=== PATIENT | male | born 1985 | race American Indian/Alaskan Native ===

== ENCOUNTER 2017-06-29 05:27 | Inpatient (IN) | payer OTHER ==
--- NOTE | 2017-06-29 06:25 | C.PDOC ---
History Of Present Illness <Ayana Hatfield - Last Filed: 06/29/17 06:21> <Khushbu Bazzi - Last Filed: 06/29/17 09:08> 32 yo male come in for evaluation of depression associated with suicidal ideation, pt has no plan. Pt denies previous hx of suicidal ideation. Pt denies drug use, Pt denies any physical complaints at present time. AT the time of evaluation, appears comfortable, not in any apparent distress. (Ayana Hatfield ) History Per: Patient <Ayana Hatfield - Last Filed: 06/29/17 06:21> <Khushbu Bazzi - Last Filed: 06/29/17 09:08> Time Seen by Provider: 06/29/17 06:21 Chief Complaint (Nursing): Psychiatric Evaluation Past Medical History Reviewed: Historical Data, Nursing Documentation, Vital Signs - Medical History PMH: Anxiety Family History: States: No Known Family Hx - Social History Hx Alcohol Use: Yes Hx Substance Use: No - Immunization History Hx Tetanus Toxoid Vaccination: No Hx Influenza Vaccination: No Hx Pneumococcal Vaccination: No <Ayana Hatfield - Last Filed: 06/29/17 06:21> Vital Signs: Last Vital Signs Temp 98.9 F 06/29/17 06:04 Pulse 97 H 06/29/17 06:04 Resp 16 06/29/17 06:04 BP 143/94 H 06/29/17 06:04 Pulse Ox 98 06/29/17 06:25 Review Of Systems Except As Marked, All Systems Reviewed And Found Negative. Constitutional: Negative for: Fever, Chills Eyes: Negative for: Vision Change ENT: Negative for: Throat Pain Cardiovascular: Negative for: Chest Pain, Palpitations, Orthopnea, Light Headedness Respiratory: Negative for: Cough, Shortness of Breath, Wheezing Gastrointestinal: Negative for: Nausea, Vomiting, Abdominal Pain, Diarrhea Genitourinary: Negative for: Dysuria Musculoskeletal: Negative for: Neck Pain, Back Pain Skin: Negative for: Rash Neurological: Negative for: Weakness, Numbness, Altered Mental Status, Headache , Dizziness Psych: Positive for: Depression, Suicidal ideation <Ayana Hatfield - Last Filed: 06/29/17 06:21> Physical Exam - Physical Exam Appears: Well, Non-toxic, No Acute Distress Skin: Normal Color, Warm, Dry Head: Atraumatic, Normacephalic Eye(s): bilateral: PERRL Ear(s): Bilateral: Normal Nose: No Flaring, No Discharge Oral Mucosa: Moist, No Drooling Throat: No Erythema, No Drooling Neck: Trachea Midline, Supple Cardiovascular: Rhythm Regular Respiratory: No Decreased Breath Sounds, No Accessory Muscle Use, No Stridor, No Wheezing Gastrointestinal/Abdominal: Soft, No Tenderness, No Distention, No Guarding Back: No CVA Tenderness Extremity: Normal ROM, No Pedal Edema, No Swelling Neurological/Psych: Oriented x3, Normal Speech <Ayana Hatfield - Last Filed: 06/29/17 06:21> ED Course And Treatment O2 Sat by Pulse Oximetry: 98 Pulse Ox Interpretation: Normal Progress Note: Pt was sign out to [facility]. medical clearence with crisis evaluation-pending. <Ayana Hatfield - Last Filed: 06/29/17 06:21> - Laboratory Results Result Diagrams: 06/29/17 06:42 06/29/17 06:42 <Khushbu Bazzi - Last Filed: 06/29/17 09:08> Medical Decision Making <Ayana Hatfield - Last Filed: 06/29/17 06:21> <Khushbu Bazzi - Last Filed: 06/29/17 09:08> Medical Decision Making: Patient was endorsed to me at 7:00. Upon evaluation, patient denies any physical complaints. Pt was evaluated by utility worker [employer] who discussed case with Dr. Smith. Dr. Smith agrees upon admission. (Khushbu Bazzi) Disposition - Disposition Disposition Time: 06:25 <Ayana Hatfield - Last Filed: 06/29/17 06:21> <Khushbu Bazzi - Last Filed: 06/29/17 09:08> - Disposition Condition: STABLE - Clinical Impression Clinical Impression: Suicidal ideation Physician Patient Turnover Patient Signed Over To: Khushbu Bazzi <Ayana Hatfield - Last Filed: 06/29/17 06:21>
[2017-06-29 06:45] LABS: BASO % 0.4 % (0.0-2.0); EOS # 0.1 K/uL (0.0-0.7); EOS % 1.3 % (0.0-4.0); HEMATOCRIT 48.3 % (35.0-51.0); LYMPH # 2.3 K/uL (1.0-4.3); LYMPH % 22.3 % (20.0-40.0); MEAN CELL VOLUME 89.5 fL (80.0-94.0); MEAN CORPUSCULAR HEMOGLOBIN 30.9 pg (27.0-31.0); MEAN CORPUSCULAR HGB CONC 34.5 g/dL (33.0-37.0); MEAN PLATELET VOLUME 7.5 fL (7.2-11.7); MONO # 0.8 K/uL (0.0-0.8); MONO % 7.4 % (0.0-10.0); NRBC % 0.1 % (0.0-2.0); RED CELL DISTRIBUTION WIDTH 12.7 % (11.5-14.5); WHITE BLOOD COUNT 10.5 K/uL (4.8-10.8)
[2017-06-29 06:52] LABS: RBC URINE 5 /hpf (0-3); URINE BILIRUBIN NEGATIVE (NEGATIVE); URINE BLOOD 1+ (NEGATIVE); URINE COLOR Yellow (YELLOW); URINE GLUCOSE (UA) NORMAL (Normal); URINE KETONE TRACE mg/dL (NEGATIVE); URINE LEUKOCYTE ESTERASE NEG Leu/uL (Negative); URINE PROTEIN NEGATIVE (NEGATIVE); URINE UROBILINOGEN NORMAL mg/dL (0.2-1.0); WBC URINE < 1 /hpf (0-5)
[2017-06-29 06:55] LABS: CHLORIDE 101 mmol/L (98-107); POTASSIUM 4.6 mmol/L (3.6-5.2); SODIUM 139 mmol/L (132-148)
[2017-06-29 06:57] LABS: ALKALINE PHOSPHATASE 84 U/L (38-126); AST/SGOT 27 U/L (17-59); BILIRUBIN,TOTAL 0.8 mg/dL (0.2-1.3); BLOOD UREA NITROGEN 13 mg/dL (9-20); CARBON DIOXIDE 28 mmol/L (22-30); GFR AFRICAN-AMERICAN > 60; TOTAL PROTEIN 8.4 g/dL (6.3-8.3)
[2017-06-29 06:58] LABS: ALCOHOL SERUM < 10 mg/dl (0-10); ALT/SGPT 37 U/L (21-72); CALCIUM 9.8 mg/dl (8.6-10.4); GLUCOSE,RANDOM 81 mg/dL (75-110)
[2017-06-29] MEDS: buPROPion SR 150 MG TABLET PO SCH (10:36)
--- NOTE | 2017-06-29 10:50 | PCM.BM ---
<HimatwnaBailee - Last Filed: 06/29/17 10:50> Treatment Plan Problems - Problems identified on initial assessmt depression Date Initiated: 06/29/17 Time Initiated: 10:47 Assessment reference: NA Status: Active Treatment assets and liabiliti Patient Assests: adapts well, cooperative, motivated, ADL independent, physically healthy, negotiates basic needs Patient Liabilities: live alone, relationship conflicts (father , sister and newphew killed by his brother) - Milieu Protocol Maintain good personal hygiene: daily Encourage regular showers, daily Remind patient to perform daily oral care, other Assist patient to perform ADL's (self) Conduct patient checks and document Observation sheet: Q15 minutes Maintain personal safety: every shift Educate patient to report safety concerns to staff, every shift Monitor environment for contraband/sharps Medication safety: Monitor for expected outcome, potential side effects: every shift, Assess barriers to learning: every shift, Assess readiness for medication education: every shift <Rita Pena - Last Filed: 07/01/17 13:33> Family Contact Family involvement: Famliy/SO not involved - Goals for Treatment Patient goals for treatment: "I want to see a therapist." Discharge/Continuing Care - Education Needs Education Needs: Patient Medication, Patient Coping Skills - Discharge Discharge Criteria: Tolerates medication w/o severe side effects, Reduction of target symptoms Discharge to:: Home - Treatment Team Participation Discussed with Family/SO: No Was Patient/Family/SO present at Treatment Team Meeting: Yes <Brendon Alcantara - Last Filed: 07/01/17 17:02> - Diagnosis (1) Major depressive disorder, single episode Status: Acute Interventions: Assess/adjust medications daily and/or as needed SEE patient on him individual basis 7x/week to assess status of hallucinations. Discuss risks, benefits, side effects and alternatives of medications. 07/01/17 17:02 (2) ADHD (attention deficit hyperactivity disorder), combined type Status: Acute Interventions: Assess/adjust medications daily and/or as needed SEE patient on him individual basis 7x/week to assess status of hallucinations. Discuss risks, benefits, side effects and alternatives of medications. 07/01/17 17:02
[2017-06-29] MEDS: Patient's Own Control Med PO SCH (16:12)
--- NOTE | 2017-06-29 20:46 | PCM.PSYCH ---
Initial Psychiatric Evaluation - Initial Psychiatric Evaluation Type of Admission: Voluntary Legal Status: Capacity Chief Complaint (in patient's own words): "I want to feel better" Patient's Reaction to Hospitalization: feeling safe History of Present Illness and Precipitating Events: time spend 36 minutes Patient is a 32-year-old single, black male with the diagnosis of ADHD was depressive symptoms with suicidal ideation. He reported that he has had depressed mood for the past few week patient reports hes had persistent suicidal thoughts with no plan or intent. He stated that he contracted hospital for safety. He reported that his stresses are that his father from a heart problem in April 2017, his sister and nephew were murdered in [place] by patients brother in May 2017 over their father's Estate. He's also having legal issues with [employer] about them debiting an unauthorized amount of $ 4000 from his bank account. Since the loss of his loved ones hes finding himself questioning God and his caren which he feels guilty about that. His appetite and sleep are poor because of his stress. The last time he fully rested was two days ago. He has relational issues with his friends and his family. He reproted that he difficulty in focusing, paying attention, and not able to work without Concertas. He prescribed Concerta 54mg for ADHD and Ativan 0.5 mg 2x/daily for anxiety. [facility] checked and it verifies that he is on Concerta for a longtime. While Ativan is a new and someday supply order. Pt also reproted that he is not taking ativan. Patient reports feelings of hopelessness and is overwhelmed, stressed and in emotional distress. He reports most days he has no motivation to go to work or do things once pleasurable. 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 Patient denies suicidal thoughts prior to a week ago. Last week he called the suicide hotline at the recommendation of friend but decided not to come to the hospital until today. Patient denies psychosis and homicidal thoughts. Patient has no history of inpatient psychiatric admission; however, he is requesting hospitalization to treat his depression and suicidal thoughts. Current Medications: Active Medications Generic Name Dose Route Start Last Admin Trade Name Freq PRN Reason Stop Dose Admin Benztropine Mesylate 2 mg 06/29/17 08:39 Cogentin PO Q6 PRN Extra Pyramidal Symptoms Bupropion HCl 150 mg 06/29/17 10:00 06/29/17 10:36 Wellbutrin Sr 150 Mg PO 150 mg QAM JEANCARLOS Administration Haloperidol 5 mg 06/29/17 08:39 Haldol PO Q8 PRN Moderate Agitation Home Med 1 tab 06/29/17 16:00 06/29/17 16:12 Patient's Own Control Medication PO 1 tab 1600 JEANCARLOS Administration Hydroxyzine HCl 25 mg 06/29/17 08:39 Atarax PO Q6 PRN Anxiety Ibuprofen 400 mg 06/29/17 08:39 Motrin Tab PO Q6 PRN Pain, moderate (4-7) Lorazepam 2 mg 06/29/17 08:39 Ativan PO Q8H PRN Severe Agitation Trazodone HCl 50 mg 06/29/17 08:39 Desyrel PO HS PRN Insomnia Past Psychiatric History - Past Psychiatric History Prior Professional Help: He denied inpt psych admission. Prior Psychiatric Treatment: ADHD and was in treatment with Concerta History of ETOH/Drug Use: Denied History of Family Illness: denied Pertinent Medical Hx (Current Medical&Sleep Prob, Allergies): Allergies Allergy/AdvReac Type Severity Reaction Status Date / Time No Known Allergies Allergy Verified 06/29/17 06:06 Lorazepam [Ativan] 0.5 mg PO BID 06/29/17 Methylphenidate HCl [Concerta] 54 mg PO DAILY 06/29/17 Review of Systems - Review of Systems Systems not reviewed;Unavailable: Acuity of Condition All systems: reviewed and no additional remarkable complaints except (psych sx. please see HPI) Mental Status Examination - Personal Presentation Personal Presentation: Looks younger than stated age, Dressed appropriate to season - Affect Affect: Constricted - Motor Activity Motor Activity: Calm, Psychomotor Retardation - Reliability in Providing Information Reliability in Providing Information: Other (poor) - Speech Speech: Incoherent - Mood Mood: Depressed - Formal Thought Process Formal Thought Process: No Impairment, Loosening of associations - Hallucinations/Delusions Hallucinations: Other (denied) - Obsessions/Compulsions Obsessions: No Compulsions: No - Cognitive Functions Orientation: Person, Place, Situation, Time Sensorium: Alert Attention/Concentration: Attentive Abstract Thinking: [place] Estimate of Intelligence: Average Judgement: Intact, as evidence by: Good judgement, Intact, as evidence by: Insight regarding need for hospitalization Memory: Recent intact, as evidence by: Ability to recall events of the day - Strength & Assets Inventory Strength & Assets Inventory: Intelligence, Education, Employment status, Employment history, Skills - Limitations Limitations: Living alone DSM 5 DX - DSM 5 DSM 5 Diagnosis: MDD single, severe, without psychosis ADHD - Recommended/Plan of Treatment Treatment Recommendations and Plan of Treatment: Start Wellbutrin for depression Start Concerta 54 mg po daily in the AM Medication benefits. risk, s/e and alternative med discussed and offered to him. He verbalized understanding and agree to start Wellbutrin. Recommend Individual/ group therapy Encouraged to attend groups. therapy in [facility]. Projected ELOS: 5-7 days Prognosis: fair with meds Discharge Plan and Discharge Criteria: compliance with meds When pt is stable on depressed mood - Smoking Cessation Smoking Cessation Initiated: Yes
[2017-06-30] MEDS: buPROPion SR 150 MG TABLET PO SCH (10:17)
[2017-06-30] MEDS: Patient's Own Control Med PO SCH (15:58)
--- NOTE | 2017-06-30 18:59 | PCM.PYCHPN ---
Psychiatric Progress Note - Psychiatric Progress Note Patient seen today, length of contact: 16 minutes Patient Chief Complaint: "I'm able to focus on myself" Problems Identified/Issues Discussed: Pt was seen and evaluated. Chart reviewed and nurse input received. Pt stated that he is feeling calm and able to focus on himself and his issues. He stated that Wellbutrin and Concerta are helping him in focusing and organizing him. He reported that he is feeling relax as he is not thinking of his relational issues. He denied SI, HI, intent or plan. Diagnostic Results: reviewed DSM 5 Symptoms Update: MDD, Severe, single, without psychotic features ADHD Medication Change: No Medical Record Reviewed: Yes Mental Status Examination - Cognitive Function Orientation: Person, Place, Situation, Time Memory: Intact Attention: WNL Concentration: WNL Association: WNL Fund of Knowledge: [facility] Decription of patient's judgement and insights: limited/fair - Mood Mood: Depressed - Affect Affect: Constricted, Blunted - Speech Speech: Appropriate - Formal Thought Process Formal Thought Process: No Impairment, Loosening of associations Psychotic Thoughts and Behaviors: denied - Suicidal Ideation Suicidal Ideation: No - Homicidal Ideation Homicidal Ideation: No Goal/Treatment Plan - Goal/Treatment Plan Need for Continued Stay: Severe depression anxiety, Discharge may exacerbated symptoms Progress Toward Problem(s) and Goals/Treatment Plan: Continue Wellbutrin for depression Concerta 54 mg po daily in the AM Medication benefits. risk, s/e and alternative med discussed and offered to him. He verbalized understanding and agree to start Wellbutrin. Recommend Individual/ group therapy Encouraged to attend groups. therapy in [facility]. Estimated Date of D/C: 07/04/17
[2017-07-01] MEDS: buPROPion SR 150 MG TABLET PO SCH (09:32)
[2017-07-01] MEDS: Patient's Own Control Med PO SCH (16:15)
--- NOTE | 2017-07-01 17:06 | PCM.PYCHPN ---
Psychiatric Progress Note - Psychiatric Progress Note Patient seen today, length of contact: 15 minutes Patient Chief Complaint: I'm feeling better. Problems Identified/Issues Discussed: Patient seen. Chart reviewed. Case discussed with the staff. Issues related to illness and treatment were discussed with the patient. Reported compliant with treatment with no adverse affects. Tolerating treatment very well. Patient reported he smokes cigarette and requested for nicotine patch. Patient refused to get the amount smoking daily, but replied he smoke a lot of cigarettes daily. Also reported feeling better with the treatment. At the time of evaluation, patient was awake alert oriented 3, no auditory or visual hallucinations, no delusions, no suicidal ideations or homicidal ideations. Medical Problems: None reported Diagnostic Results: Reviewed DSM 5 Symptoms Update: Improving with treatment Medication Change: Yes (Nicotine patch started) Medical Record Reviewed: Yes Mental Status Examination - Cognitive Function Orientation: Person, Place, Situation, Time Memory: Intact Attention: WNL Concentration: WNL Association: WNL Fund of Knowledge: WN Decription of patient's judgement and insights: Fair - Mood Mood: Depressed - Affect Affect: Blunted - Speech Speech: Appropriate - Formal Thought Process Formal Thought Process: No Impairment - Suicidal Ideation Suicidal Ideation: No - Homicidal Ideation Homicidal Ideation: No Goal/Treatment Plan - Goal/Treatment Plan Need for Continued Stay: Remain at risks for inpatient hospitalization, Discharge may exacerbated symptoms, Severe functional impairment Progress Toward Problem(s) and Goals/Treatment Plan: Patient education Supportive therapy Continue treatment as before Wants to go to [facility] for follow-up care after discharge from the hospital. Estimated Date of D/C: 07/04/17 - Smoking Cessation Smoking Cessation Initiated: Yes
[2017-07-02] MEDS: buPROPion SR 150 MG TABLET PO SCH (10:08)
--- NOTE | 2017-07-02 14:37 | PCM.PYCHPN ---
Psychiatric Progress Note - Psychiatric Progress Note Patient seen today, length of contact: 15 minutes Patient Chief Complaint: I'm feeling better, but now I have racing thoughts Problems Identified/Issues Discussed: Patient seen. Chart reviewed. Case discussed with the staff. Issues related to illness and treatment were discussed with the patient. Reported compliant with treatment with no adverse affects. Tolerating treatment very well. Also reported feeling better with the treatment. today patient reported that he feels better, but also has a lot of racing thoughts. we will start Depakote 500 mg twice a day. At the time of evaluation, patient was awake alert oriented 3, no auditory or visual hallucinations, no delusions, no suicidal ideations or homicidal ideations. Medical Problems: None reported Diagnostic Results: Reviewed DSM 5 Symptoms Update: Improving with treatment Medication Change: Yes (started Depakote 500 mg twice a day) Medical Record Reviewed: Yes Mental Status Examination - Cognitive Function Orientation: Person, Place, Situation, Time Memory: Intact Attention: WNL Concentration: WNL Association: [facility] Fund of Knowledge: [facility] Decription of patient's judgement and insights: Fair - Mood Mood: Neutral - Affect Affect: Blunted - Speech Speech: Appropriate - Formal Thought Process Formal Thought Process: No Impairment Psychotic Thoughts and Behaviors: none - Suicidal Ideation Suicidal Ideation: No - Homicidal Ideation Homicidal Ideation: No Goal/Treatment Plan - Goal/Treatment Plan Need for Continued Stay: Remain at risks for inpatient hospitalization, Discharge may exacerbated symptoms, Severe functional impairment Progress Toward Problem(s) and Goals/Treatment Plan: Patient education Supportive therapy we will start Depakote 500 mg twice a day Continue rest of the treatment as before Wants to go to [facility] for follow-up care after discharge from the hospital. Estimated Date of D/C: 07/04/17 - Smoking Cessation Smoking Cessation Initiated: No
[2017-07-02] MEDS: Patient's Own Control Med PO SCH (16:06)
[2017-07-02] MEDS: Divalproex 500 mg DR Tab PO SCH (17:53)
[2017-07-03] MEDS: buPROPion SR 150 MG TABLET PO SCH (09:46)
[2017-07-03] MEDS: Divalproex 500 mg DR Tab PO SCH ×2 (09:46→17:20)
--- NOTE | 2017-07-03 13:08 | PCM.PYCHPN ---
Psychiatric Progress Note - Psychiatric Progress Note Patient seen today, length of contact: 15 minutes Patient Chief Complaint: I'm feeling better. Problems Identified/Issues Discussed: Patient seen. Chart reviewed. Case discussed with the staff. Issues related to illness and treatment were discussed with the patient. Reported compliant with treatment with no adverse affects. Tolerating treatment very well. Patient reported feeling better. Denied any racing thoughts after addition of Depakote. At the time of evaluation, patient was awake alert oriented 3, no auditory or visual hallucinations, no delusions, no suicidal ideations or homicidal ideations. Medical Problems: None reported Diagnostic Results: Reviewed DSM 5 Symptoms Update: Improving with treatment Medication Change: No Medical Record Reviewed: Yes Mental Status Examination - Cognitive Function Orientation: Person, Place, Situation, Time Memory: Intact Attention: WNL Concentration: WNL Association: WN Fund of Knowledge: [facility] Decription of patient's judgement and insights: Fair - Mood Mood: Neutral - Affect Affect: Blunted - Speech Speech: Appropriate - Formal Thought Process Formal Thought Process: No Impairment Psychotic Thoughts and Behaviors: None - Suicidal Ideation Suicidal Ideation: No - Homicidal Ideation Homicidal Ideation: No Goal/Treatment Plan - Goal/Treatment Plan Need for Continued Stay: Remain at risks for inpatient hospitalization, Discharge may exacerbated symptoms, Severe functional impairment Progress Toward Problem(s) and Goals/Treatment Plan: Patient education Supportive therapy Continue treatment as before Wants to go to [facility] for follow-up care after discharge from the hospital. Estimated Date of D/C: 07/08/17 - Smoking Cessation Smoking Cessation Initiated: No
[2017-07-03] MEDS: Patient's Own Control Med PO SCH (16:25)
[2017-07-04] MEDS: buPROPion SR 150 MG TABLET PO SCH (09:43)
[2017-07-04] MEDS: Divalproex 500 mg DR Tab PO SCH ×3 (09:43→17:32)
[2017-07-04] MEDS: Patient's Own Control Med PO SCH (11:19)
--- NOTE | 2017-07-04 12:48 | PCM.PYCHPN ---
Psychiatric Progress Note - Psychiatric Progress Note Patient seen today, length of contact: 15 minutes Patient Chief Complaint: I'm feeling better. I don't want to take Depakote. Problems Identified/Issues Discussed: Patient seen. Chart reviewed. Case discussed with the staff. Issues related to illness and treatment were discussed with the patient. Reported compliant with treatment with no adverse affects. Tolerating treatment very well. Patient reported feeling better. Denied any racing thoughts after addition of Depakote. Today patient refuses to take Depakote. Education provided about Depakote and other medications. After education patient agreed to take all of his medications. At the time of evaluation, patient was awake alert oriented 3, no auditory or visual hallucinations, no delusions, no suicidal ideations or homicidal ideations. Medical Problems: None reported Diagnostic Results: Reviewed DSM 5 Symptoms Update: Improving with treatment Medication Change: No Medical Record Reviewed: Yes Mental Status Examination - Cognitive Function Orientation: Person, Place, Situation, Time Memory: Intact Attention: WNL Concentration: WNL Association: [facility] Fund of Knowledge: [facility] Decription of patient's judgement and insights: Fair - Mood Mood: Neutral - Affect Affect: Blunted - Speech Speech: Appropriate - Formal Thought Process Formal Thought Process: No Impairment Psychotic Thoughts and Behaviors: None - Suicidal Ideation Suicidal Ideation: No - Homicidal Ideation Homicidal Ideation: No Goal/Treatment Plan - Goal/Treatment Plan Need for Continued Stay: Remain at risks for inpatient hospitalization, Discharge may exacerbated symptoms, Severe functional impairment Progress Toward Problem(s) and Goals/Treatment Plan: Patient education Supportive therapy Continue treatment as before Wants to go to [facility] for follow-up care after discharge from the hospital. Estimated Date of D/C: 07/08/17 - Smoking Cessation Smoking Cessation Initiated: No
[2017-07-05] MEDS: Divalproex 500 mg DR Tab PO SCH ×3 (09:46→18:12)
[2017-07-05] MEDS: Patient's Own Control Med PO SCH (10:11)
[2017-07-05] MEDS: buPROPion SR 150 MG TABLET PO SCH (11:00)
[2017-07-06 07:59] VITALS: O2SAT 98
[2017-07-06] MEDS: buPROPion SR 150 MG TABLET PO SCH (09:05)
[2017-07-06] MEDS: Divalproex 500 mg DR Tab PO SCH ×3 (09:05→17:10)
[2017-07-06] MEDS: Patient's Own Control Med PO SCH (09:06)
--- NOTE | 2017-07-06 14:38 | PCM.PYCHPN ---
Psychiatric Progress Note - Psychiatric Progress Note Patient seen today, length of contact: 15 minutes Patient Chief Complaint: I'm feeling better but that he had some sleeping problems. Problems Identified/Issues Discussed: Patient seen. Chart reviewed. Case discussed with the staff. Issues related to illness and treatment were discussed with the patient. Reported compliant with treatment with no adverse affects. Tolerating treatment very well. Patient reported feeling better still reported some sleeping problem. We'll increase the dose of trazodone 100 mg. At the time of evaluation, patient was awake alert oriented 3, no auditory or visual hallucinations, no delusions, no suicidal ideations or homicidal ideations. Medical Problems: None reported Diagnostic Results: Reviewed DSM 5 Symptoms Update: Improving with treatment Medication Change: Yes (Dose of trazodone increased to 100 mg) Medical Record Reviewed: Yes Mental Status Examination - Cognitive Function Orientation: Person, Place, Situation, Time Memory: Intact Attention: WNL Concentration: WNL Association: WN Fund of Knowledge: [facility] Decription of patient's judgement and insights: Fair - Mood Mood: Neutral - Affect Affect: Blunted - Speech Speech: Appropriate - Formal Thought Process Formal Thought Process: No Impairment Psychotic Thoughts and Behaviors: None - Suicidal Ideation Suicidal Ideation: No - Homicidal Ideation Homicidal Ideation: No Goal/Treatment Plan - Goal/Treatment Plan Need for Continued Stay: Remain at risks for inpatient hospitalization, Discharge may exacerbated symptoms, Severe functional impairment Progress Toward Problem(s) and Goals/Treatment Plan: Patient education Supportive therapy Will increase the dose of trazodone to 100 mg at bedtime Continue rest of the treatment as before Wants to go to [facility] for follow-up care after discharge from the hospital. Estimated Date of D/C: 07/08/17 - Smoking Cessation Smoking Cessation Initiated: No
[2017-07-06 16:12] VITALS: RESP 18
[2017-07-07] MEDS: Patient's Own Control Med PO SCH (10:26)
[2017-07-07] MEDS: Divalproex 500 mg DR Tab PO SCH ×2 (10:26→17:34)
[2017-07-07] MEDS: buPROPion SR 150 MG TABLET PO SCH (10:29)
--- NOTE | 2017-07-07 14:57 | PCM.PYCHPN ---
Psychiatric Progress Note - Psychiatric Progress Note Patient seen today, length of contact: 15 minutes Patient Chief Complaint: I'm feeling better. Problems Identified/Issues Discussed: Patient seen. Chart reviewed. Case discussed with the staff. Issues related to illness and treatment were discussed with the patient. Reported compliant with treatment with no adverse affects. Tolerating treatment very well. Patient reported feeling better. Better mood, sleep and appetite. At the time of evaluation, patient was awake alert oriented 3, no auditory or visual hallucinations, no delusions, no suicidal ideations or homicidal ideations. Medical Problems: None reported Diagnostic Results: Reviewed DSM 5 Symptoms Update: Improving with treatment Medication Change: No Medical Record Reviewed: Yes Mental Status Examination - Cognitive Function Orientation: Person, Place, Situation, Time Memory: Intact Attention: WNL Concentration: WNL Association: WNL Fund of Knowledge: [facility] Decription of patient's judgement and insights: Fair - Mood Mood: Neutral - Affect Affect: Blunted - Speech Speech: Appropriate - Formal Thought Process Formal Thought Process: No Impairment Psychotic Thoughts and Behaviors: None - Suicidal Ideation Suicidal Ideation: No - Homicidal Ideation Homicidal Ideation: No Goal/Treatment Plan - Goal/Treatment Plan Need for Continued Stay: Remain at risks for inpatient hospitalization, Discharge may exacerbated symptoms, Severe functional impairment Progress Toward Problem(s) and Goals/Treatment Plan: Patient education Supportive therapy Continue treatment as before. Wants to go to [facility] for follow-up care after discharge from the hospital. Estimated Date of D/C: 07/08/17 - Smoking Cessation Smoking Cessation Initiated: No
[2017-07-07] MEDS ORDERED: Sodium Chloride Nasal 0.65% Soln (30ml) NAS PRN (21:20)
[2017-07-08 07:28] VITALS: BP 129/75; PULSE 76; TEMP 96.7
--- NOTE | 2017-07-08 09:42 | PCM.PYCHDC ---
Mental Status Examination - Mental Status Examination Orientation: Person, Place, Situation, Time Memory: Intact Mood: Anxious Affect: Broad (odd smile) Speech: Appropriate Attention: Poor Concentration: Poor Association: WNL Fund of Knowledge: WNL Formal Thought Process: No Impairment Suicidal Ideation: No Current Homicidal Ideation?: No Discharge Summary - Discharge Note Reason for Hospitalization: Depression and SI Consultations:: List each consultation separately and include: 1. Reason for request. 2. Findings. 3. Follow-up Summary of Hospital Course include:: 1. Description of specific treatment plan utilized for patients during their course of treatmen. 2. Summarize the time- course for resolution of acute symptoms and/or regressed behaviors. 3. Describe issues identified and worked on during hospitalization. 4. Describe medication utilized. 5. Describe medical problems identified and treated. 6. Reassessment of suicide risk Summary of Hospital Course: The pt was admitted and started on treatment with psychotherapy, support, psychoeducation and medications. MS and CBT used. The pt attended groups and activities, as well as milieu therapy. All the risks and benefits of medications are discussed and the patient understood and agreed. The pt improved with the treatments provided. After care discussed with the patient. He was not interested in any concrete follow up (but got the appointment for [facility]) and he refused meds He said with therapy and good self-care (gym, etc.) he should be OK. 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 relapse, SI, even . He understood. - Final Diagnosis (DSM 5) Condition upon Discharge: STABLE DSM 5: MDD single, severe, without psychosis ADHD Disposition: HOME/ ROUTINE Follow-up Treatment Plan: Follow after care plan as discussed. Use relapse prevention skills Return to ER or call 911 if suicidal, homicidal or symptoms relapse. Stay away from stress, alcohol and drugs. See primary doctor regularly and get labs. - Smoking Cessation Smoking Cessation Medication prescribed: No - Antipsychotic Medications Pt discharged on 2 or more routine antipsychotic medications: No
[2017-07-08] MEDS: Divalproex 500 mg DR Tab PO SCH (12:01)
[2017-07-08] MEDS: buPROPion SR 150 MG TABLET PO SCH (12:07)
[2017-07-08] MEDS: Patient's Own Control Med PO SCH (12:15)
== END 2017-07-08 12:55 | disposition home or self-care (01) | DRG 430 ==
LOC: C.ER 05:27 → C.5E 08:32
PROVIDERS: ADMIT Psychiatry & Neurology Psychiatry; ATTEND Psychiatry & Neurology Psychiatry
PROC: GZ56ZZZ Individual Psychotherapy, Supportive (ICD-10-PCS; principal; 2017-06-29)
DX: F32.2 Major depressive disorder, single episode, severe without psychotic features (principal); F41.9 Anxiety disorder, unspecified; F17.210 Nicotine dependence, cigarettes, uncomplicated; F90.2 Attention-deficit hyperactivity disorder, combined type

== ENCOUNTER 2018-01-09 20:44 | Emergency (ER) | payer OTHER ==
[2018-01-09 21:16] VITALS: BP 130/88; PULSE 112; RESP 20; TEMP 99.6; O2SAT 99
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
== END 2018-01-09 22:26 | disposition home or self-care (01) ==
LOC: C.ER 20:44
DX: F41.9 Anxiety disorder, unspecified (principal); G47.9 Sleep disorder, unspecified

== ENCOUNTER 2018-01-16 02:02 | Emergency (ER) | payer OTHER ==
[2018-01-16 02:28] VITALS: RESP 20; O2SAT 99
--- NOTE | 2018-01-16 02:54 | C.PDOC ---
History Of Present Illness pt presents stating that he can't sleep. Was seen here for similar complaint. very anxious. Wants something to sleep Time Seen by Provider: 01/16/18 02:41 Chief Complaint (Nursing): Medical Clearance History Per: Patient History/Exam Limitations: no limitations Onset/Duration Of Symptoms: Days Current Symptoms Are (Timing): Still Present Severity: Mild Pain Scale Rating Of: 2 Reports Recently: Seen In ED, Treated By A Physician Recent travel outside of the [place]: No Additional History Per: Patient Past Medical History Reviewed: Historical Data, Nursing Documentation, Vital Signs Vital Signs: Last Vital Signs Temp 98.1 F 01/16/18 02:24 Pulse 84 01/16/18 02:24 Resp 20 01/16/18 02:24 BP 108/55 L 01/16/18 02:24 Pulse Ox 99 01/16/18 02:54 - Medical History PMH: Anxiety Denies: Diabetes, Hepatitis, HIV, HTN, Chronic Kidney Disease, Seizures, Sexually Transmitted Disease - [facility] Procedures INDIVIDUAL PSYCHOTHERAPY, SUPPORTIVE (06/29/17) Family History: States: No Known Family Hx - Social History Hx Alcohol Use: No Hx Substance Use: No - Immunization History Hx Tetanus Toxoid Vaccination: No Hx Influenza Vaccination: No Hx Pneumococcal Vaccination: No Review Of Systems Constitutional: Negative for: Fever Cardiovascular: Negative for: Chest Pain Respiratory: Negative for: Shortness of Breath Gastrointestinal: Negative for: Abdominal Pain Musculoskeletal: Negative for: Back Pain Skin: Negative for: Rash Neurological: Negative for: Weakness Psych: Positive for: Anxiety Physical Exam - Physical Exam Appears: Non-toxic, No Acute Distress Skin: Warm, Dry Head: Normacephalic Oral Mucosa: Moist Neck: Supple Chest: Symmetrical Cardiovascular: Rhythm Regular Respiratory: No Rales, No Rhonchi, No Wheezing Gastrointestinal/Abdominal: Soft, No Tenderness Back: Normal Inspection Extremity: Normal ROM Extremity: Bilateral: Atraumatic Neurological/Psych: Oriented x3, No Normal Speech, No Normal Cognition Gait: Steady ED Course And Treatment O2 Sat by Pulse Oximetry: 99 Pulse Ox Interpretation: Normal Reevaluation Time: 03:45 Reassessment Condition: Improved Disposition Counseled Patient/Family Regarding: Studies Performed, Diagnosis, Need For Followup - Disposition Referrals: [facility] [Outside] Disposition: HOME/ ROUTINE Disposition Time: 02:53 Condition: FAIR Instructions: Anxiety, Adult (DC) Forms: [facility] (Nepalese) - Clinical Impression Clinical Impression: Anxiety
[2018-01-16 04:10] VITALS: BP 110/60; PULSE 82; TEMP 98.2
== END 2018-01-16 04:09 | disposition home or self-care (01) ==
LOC: C.ER 02:02
DX: F41.9 Anxiety disorder, unspecified (principal)

== ENCOUNTER 2018-04-21 08:07 | Inpatient (IN) | payer MEDICAID, OTHER ==
[2018-04-21 08:07] VITALS: BMI 20.7
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
[2018-04-21] MEDS ORDERED: Bacitracin 500 Units/gm Oint Foilpak UD TOP ONE ×2 (08:43→22:11)
[2018-04-21 09:09] LABS: BASO # 0.1 K/uL (0.0-0.2); BASO % 0.9 % (0.0-2.0); EOS # 0.1 K/uL (0.0-0.7); EOS % 1.1 % (0.0-4.0); LYMPH # 1.4 K/uL (1.0-4.3); LYMPH % 16.6 % (20.0-40.0); MEAN CORPUSCULAR HEMOGLOBIN 32.3 pg (27.0-31.0); MEAN CORPUSCULAR HGB CONC 35.5 g/dL (33.0-37.0); MEAN PLATELET VOLUME 7.9 fL (7.2-11.7); MONO # 0.6 K/uL (0.0-0.8); MONO % 7.4 % (0.0-10.0); NEUT # 6.5 K/uL (1.8-7.0); RBC 4.56 Mil/uL (4.40-5.90); RED CELL DISTRIBUTION WIDTH 12.7 % (11.5-14.5); WHITE BLOOD COUNT 8.7 K/uL (4.8-10.8)
[2018-04-21] MEDS ORDERED: Bacitracin 500 Units/gm Oint Foilpak UD ONE (09:09)
[2018-04-21 09:16] LABS: HEMOGLOBIN 14.7 g/dL (12.0-18.0)
[2018-04-21 09:26] LABS: ALB/GLOB RATIO 1.2 (1.0-2.1); ALBUMIN 3.7 g/dL (3.5-5.0); ALT/SGPT 33 U/L (21-72); AST/SGOT 35 U/L (17-59); BLOOD UREA NITROGEN 13 mg/dL (9-20); GFR AFRICAN-AMERICAN > 60; GFR NON-AFRICAN AMERICAN > 60
[2018-04-21 09:44] LABS: URINE BILIRUBIN NEGATIVE (NEGATIVE); URINE BLOOD NEGATIVE (NEGATIVE); URINE CLARITY Clear (Clear); URINE COLOR Yellow (YELLOW); URINE GLUCOSE (UA) NORMAL (Normal); URINE LEUKOCYTE ESTERASE NEG Leu/uL (Negative); URINE PROTEIN NEGATIVE (NEGATIVE)
[2018-04-21 10:04] LABS: BARBITURATES, UR NEGATIVE (NEGATIVE); BENZODIAZEPINES, UR NEGATIVE (NEGATIVE); OPIATES, UR NEGATIVE (NEGATIVE); PHENCYCLIDINE, UR NEGATIVE (NEGATIVE)
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
--- NOTE | 2018-04-21 21:43 | PCM.BM ---
<Dez Coreas - Last Filed: 04/21/18 21:42> Treatment Plan Problems - Problems identified on initial assessmt Depression Date Initiated: 04/21/18 Time Initiated: 15:00 Assessment reference: NA Status: Active Treatment assets and liabiliti Patient Assests: cooperative, motivated, ADL independent, physically healthy, negotiates basic needs, cognitively intact Patient Liabilities: financial problems, poor support system - Milieu Protocol Maintain good personal hygiene: daily Encourage regular showers, daily Remind patient to perform daily oral care, every shift Assist patient to perform ADL's Conduct patient checks and document Observation sheet: Q15 minutes Maintain personal safety: every shift Educate patient to report safety concerns to staff, every shift Monitor environment for contraband/sharps Medication safety: Monitor for expected outcome, potential side effects: every shift, Assess barriers to learning: every shift, Assess readiness for medication education: every shift <Ramiro Pace - Last Filed: 04/23/18 11:30> - Diagnosis (1) Bipolar disorder Status: Acute Interventions: 04/23/18 11:30 * Assess/adjust medications daily and /or as needed * See patient on an individual basis 7x/week to assess level of manic behaviors and stability * Discuss risks, benefits, side effects and alternatives of medications * <Deena Hernández - Last Filed: 04/23/18 15:25> Family Contact Family involvement: Patient does not wish Family/SO involvement Family contact: Patient declines to allow family contact at present - Goals for Treatment Patient goals for treatment: "I want to go to an outpatient program." Discharge/Continuing Care - Education Needs Education Needs: Patient Medication, Patient Diagnosis/Disease Process, Patient Coping Skills, Patient Anger Management skills, Patient Placement options, Patient Community resources - Discharge Discharge Criteria: Free of Suicidal thoughts, Free of Homicidal thoughts, Free of agitation, Normal sleep pattern, Ability to care for self, No longer exhibiting s/s of withdrawal, Reduction of target symptoms Discharge to:: Home - Treatment Team Participation Discussed with Family/SO: No Was Patient/Family/SO present at Treatment Team Meeting: Yes
[2018-04-21] MEDS ORDERED: Bacitracin Ointment 30 GM TUBE TOP PRN (23:52)
[2018-04-22] MEDS ORDERED: CONCERTA 54 MG PO SCH (14:00)
--- NOTE | 2018-04-22 14:02 | PCM.PYCHPN ---
Psychiatric Progress Note - Psychiatric Progress Note Patient seen today, length of contact: 16 min Patient Chief Complaint: I was feeling depressed.' Problems Identified/Issues Discussed: Continue medications Support and psychoeducation daily Attend groups and activities daily After care planning by JOSE RAUL Pt said that he would only take anti-depressant meds if he received his ADHD medication. Otherwise pt was cooperative, talkative, with a broad affect. He said that he was still feeling depressed and had anxiety. Said that he had thoughts about hurting himself as well as hurting his ex-partner. Denied and auditory or visual hallucinations. He remained isolated and withdrawn, and confined to her room. He denies any AVH or any paranoia. Patient is compliant with medications and denies any side effects. Symptoms are improving but pt needs more time to stabilize. Support and psychoeducation given. Medication Change: Yes Medical Record Reviewed: Yes Mental Status Examination - Cognitive Function Orientation: Person, Place, Situation, Time Memory: Intact Attention: WNL Concentration: WNL Association: Loose Fund of Knowledge: WNL - Mood Mood: Depressed, Anxious - Affect Affect: Broad, Constricted, Depressed - Speech Speech: Appropriate - Formal Thought Process Formal Thought Process: Loosening of associations - Suicidal Ideation Suicidal Ideation: No Plan: no plan - Homicidal Ideation Homicidal Ideation: No Plan: no plan Goal/Treatment Plan - Goal/Treatment Plan Need for Continued Stay: Discharge may exacerbated symptoms, Severe functional impairment Progress Toward Problem(s) and Goals/Treatment Plan: Bipolar disorder mixed severe without psychotic features ADHD Alcohol use disorder severe CBT Psychoeducation Supportive therapy, group therapy, individual therapy Trileptal 150 mg by mouth twice a day Seroquel 50 mg by mouth daily at bedtime DC Concerta Trazodone 50 mg by mouth daily at bedtime Neurontin 300 mg by mouth twice a day
--- NOTE | 2018-04-23 11:31 | PCM.PYCHPN ---
Psychiatric Progress Note - Psychiatric Progress Note Patient Chief Complaint: I want my medications Problems Identified/Issues Discussed: Continue medications Support and psychoeducation daily Attend groups and activities daily After care planning by JOSE RAUL Pt became agitated and angry when told that he would not be receiving his ADHD medication. After which he stated that he will refuse to take any medication offered to him during his stay here. He also appeared to be confused when being told that he wasn't going to received his meds, asking multiple times what was being told to him, afterwards stating that he couldn't focus because he hadn't been taking his ADHD meds. Denied any auditory or visual hallucinations; denied any suicidal ideations, still has thoughts about hurting his ex-boyfriend. Mental Status Examination - Cognitive Function Orientation: Person, Place, Situation, Time Memory: Intact Attention: WNL Concentration: WNL - Mood Mood: Depressed, Anxious, Homicidal Ideation - Affect Affect: Broad, Constricted, Depressed - Speech Speech: Appropriate - Formal Thought Process Formal Thought Process: No Impairment - Suicidal Ideation Suicidal Ideation: No - Homicidal Ideation Homicidal Ideation: Yes Goal/Treatment Plan - Goal/Treatment Plan Progress Toward Problem(s) and Goals/Treatment Plan: Bipolar disorder mixed severe without psychotic features ADHD Alcohol use disorder severe CBT Psychoeducation Supportive therapy, group therapy, individual therapy Trileptal 150 mg by mouth twice a day Seroquel 50 mg by mouth daily at bedtime DC Concerta Trazodone 50 mg by mouth daily at bedtime Neurontin 300 mg by mouth twice a day
[2018-04-23 16:18] VITALS: O2SAT 99
--- NOTE | 2018-04-24 12:41 | PCM.PYCHPN ---
Psychiatric Progress Note - Psychiatric Progress Note Patient seen today, length of contact: 16 min Patient Chief Complaint: "I' ll take my meds" Problems Identified/Issues Discussed: Continue medications Support and psychoeducation daily Attend groups and activities daily After care planning by JOSE RAUL Pt said that he wasn't interested in taking any medications since he isn't receiving his ADHD medication. Pt was agitated and irritable. He denies any AVH or any paranoia. He reports some improvement in his mood and denies any AVH. Patient is compliant with medications and denies any side effects. Symptoms are improving but need more time to stabilize. Support and psychoeducation given. === Medication Change: Yes Medical Record Reviewed: Yes Mental Status Examination - Cognitive Function Orientation: Person, Place, Situation, Time Memory: Intact Attention: WNL Concentration: WNL Association: Loose Fund of Knowledge: WNL - Mood Mood: Depressed, Anxious - Affect Affect: Constricted, Depressed - Speech Speech: Appropriate - Formal Thought Process Formal Thought Process: Loosening of associations - Suicidal Ideation Suicidal Ideation: No - Homicidal Ideation Homicidal Ideation: No Goal/Treatment Plan - Goal/Treatment Plan Need for Continued Stay: Discharge may exacerbated symptoms, Severe functional impairment Progress Toward Problem(s) and Goals/Treatment Plan: Bipolar disorder mixed severe without psychotic features ADHD Alcohol use disorder severe CBT Psychoeducation Supportive therapy, group therapy, individual therapy Trileptal 300 mg by mouth twice a day Seroquel 100 mg by mouth daily at bedtime Trazodone 50 mg by mouth daily at bedtime Neurontin 300 mg by mouth twice a day Klonopin 1 mg PO BID - Smoking Cessation Smoking Cessation Initiated: No
[2018-04-24 16:37] VITALS: BP 120/74
[2018-04-25 06:31] VITALS: PULSE 70; RESP 18; TEMP 97.8
--- NOTE | 2018-04-25 09:50 | PCM.PYCHDC ---
Mental Status Examination - Mental Status Examination Orientation: Person, Place, Situation, Time Memory: Intact Mood: Anxious Affect: Constricted Speech: Appropriate Attention: WNL Concentration: Poor Association: WNL Fund of Knowledge: WNL Formal Thought Process: No Impairment Suicidal Ideation: No Current Homicidal Ideation?: No Discharge Summary - Discharge Note Reason for Hospitalization: Feeling depressed Consultations:: List each consultation separately and include: 1. Reason for request. 2. Findings. 3. Follow-up Summary of Hospital Course include:: 1. Description of specific treatment plan utilized for patients during their course of treatmen. 2. Summarize the time- course for resolution of acute symptoms and/or regressed behaviors. 3. Describe issues identified and worked on during hospitalization. 4. Describe medication utilized. 5. Describe medical problems identified and treated. 6. Reassessment of suicide risk Summary of Hospital Course: The pt was admitted and started on treatment with psychotherapy, support, psychoeducation and medications. Support and CBT used The pt attended some groups and activities, as well as milieu therapy. All the risks and benefits of medications are discussed and the patient understood and agreed. The pt improved with the treatments provided. However, he was fixated on getting Concerta and even though the risks of using it when he was complaining of agitation discussed, he kept insisting. He was no longer homicidal or suicidal. He was future oriented and pleasant at he end. Before that, however, he was threatening to staff and med-seeking After care discussed with the patient. He will go to [facility] clinic. - Final Diagnosis (DSM 5) Condition upon Discharge: STABLE DSM 5: Bipolar disorder mixed severe without psychotic features ADHD Alcohol use disorder severe Personality disorder - unspecified Disposition: HOME/ ROUTINE Follow-up Treatment Plan: Continue below medications after discharge. Plus, your own medications, but do NOT resume 54 mg Concerta if you have not taken it for more than 2-3 days Follow after care plan as discussed. Use relapse prevention skills Return to ER or call 911 if suicidal, homicidal or symptoms relapse. Stay away from stress, alcohol and drugs. See primary doctor regularly and get labs. Prescriptions/Medication Reconciliation: OXcarbazepine [Trileptal] 300 mg PO BID #30 tab QUEtiapine [Seroquel] 100 mg PO HS #14 tab
== END 2018-04-25 12:31 | disposition home or self-care (01) | DRG 885 ==
LOC: C.ER 08:07 → C.5E 12:00
PROVIDERS: ADMIT Psychiatry & Neurology Psychiatry; ATTEND Psychiatry & Neurology Psychiatry
PROC: GZ56ZZZ Individual Psychotherapy, Supportive (ICD-10-PCS; principal; 2018-04-21)
DX: F31.63 Bipolar disorder, current episode mixed, severe, without psychotic features (principal); F10.10 Alcohol abuse, uncomplicated; F41.9 Anxiety disorder, unspecified; F60.9 Personality disorder, unspecified; F90.2 Attention-deficit hyperactivity disorder, combined type; R45.850 Homicidal ideations; Z91.14 Patient's other noncompliance with medication regimen; Z87.891 Personal history of nicotine dependence

== ENCOUNTER 2018-04-30 00:44 | Emergency (ER) | payer MEDICAID, OTHER ==
[2018-04-30 00:44] VITALS: BMI 20.7
[2018-04-30 01:42] VITALS: RESP 18; O2SAT 99
--- NOTE | 2018-04-30 01:54 | C.PDOC ---
History Of Present Illness 33yo male, comes to ER for evaluation of bloody stools x 5 days. Patient states every time he makes a bowel movement, he noted blood in the stool, bowl and on the tissue. He states pain is only present if the stool is hard; he reports his last bowel movement was today and the stool was loose but there was blood present. He denies any abdominal pain, fever, chills, nausea, vomiting, light headedness. He offers no other complaints. Time Seen by Provider: 04/30/18 01:22 Chief Complaint (Nursing): GI Problem History Per: Patient History/Exam Limitations: no limitations Onset/Duration Of Symptoms: Days (5) Current Symptoms Are (Timing): Still Present Past Medical History Reviewed: Historical Data, Nursing Documentation, Vital Signs Vital Signs: Last Vital Signs Temp 98.2 F 04/30/18 02:00 Pulse 80 04/30/18 02:00 Resp 18 04/30/18 02:00 BP 101/69 04/30/18 02:00 Pulse Ox 99 04/30/18 02:39 - Medical History PMH: Anxiety, Depression Surgical History: No Surg Hx - [facility] Procedures GROUP PSYCHOTHERAPY (04/01/18) INDIVIDUAL PSYCHOTHERAPY, COGNITIVE-BEHAVIORAL (04/01/18) INDIVIDUAL PSYCHOTHERAPY, SUPPORTIVE (04/21/18) Family History: States: No Known Family Hx - Social History Hx Alcohol Use: Yes Hx Substance Use: No - Immunization History Hx Tetanus Toxoid Vaccination: Yes Hx Influenza Vaccination: No Hx Pneumococcal Vaccination: No Review Of Systems Except As Marked, All Systems Reviewed And Found Negative. Constitutional: Negative for: Fever, Chills Cardiovascular: Negative for: Light Headedness Gastrointestinal: Positive for: Hematochezia. Negative for: Vomiting, Abdominal Pain, Constipation, Rectal Pain Physical Exam - Physical Exam Appears: Non-toxic, No Acute Distress Skin: Normal Color, Warm, Dry Head: Atraumatic, Normacephalic Eye(s): bilateral: Normal Inspection, EOMI Neck: Normal ROM, Supple Chest: Symmetrical Cardiovascular: Rhythm Regular Respiratory: Normal Breath Sounds Gastrointestinal/Abdominal: Normal Exam, Soft, No Tenderness, No Guarding, No Rebound Rectal: No Blood Streaked Stool, Hemorrhoids (external), No Mass, No Tenderness Back: Normal Inspection Male Genital: No Testicular Swelling, No Scrotal Swelling, Circumcised Extremity: Normal ROM Neurological/Psych: Oriented x3, Normal Speech Gait: Steady ED Course And Treatment O2 Sat by Pulse Oximetry: 99 (RA) Pulse Ox Interpretation: Normal Medical Decision Making Medical Decision Making: Impression: Hemorrhoids Plan: * Occult stool Progress: Stool negative for blood. Patient instructed to take medications as prescribed. Patient informed on sitz bath. Stable for discharge home. Disposition Counseled Patient/Family Regarding: Diagnosis, Need For Followup, Rx Given - Disposition Referrals: [facility] [Outside] [email or web address] [Outside] Disposition: HOME/ ROUTINE Disposition Time: 01:52 Condition: STABLE Additional Instructions: Do Sitz baths Take medications as prescribed Follow up in the clinic Prescriptions: Docusate [Colace] 100 mg PO TID PRN #30 cap PRN Reason: Constipation Hard Fat/Phenylephrine [place] [Anusol Suppository] 1 sup RC HS #24 sup Instructions: Hemorrhoids (DC), How to Do a Sitz Bath Forms: [facility] - POA Present On Arrival: None - Clinical Impression Clinical Impression: Hemorrhoids - PA / SOFTWARE DEVELOPMENT TEST ENGINEER / Resident Statement MD/ has reviewed & agrees with the documentation as recorded. - Scribe Statement The provider has reviewed the documentation as recorded by the Jessica Shelley Provider Attestation: All medical record entries made by the Jessica were at my direction and personally dictated by me. I have reviewed the chart and agree that the record accurately reflects my personal performance of the history, physical exam, medical decision making, and the department course for this patient. I have also personally directed, reviewed, and agree with the discharge instructions and disposition.
[2018-04-30 02:04] VITALS: BP 101/69; PULSE 80; TEMP 98.2
== END 2018-04-30 02:04 | disposition home or self-care (01) ==
LOC: C.ER 00:44
DX: K64.4 Residual hemorrhoidal skin tags (principal)
CPT/HCPCS: 99284; G0328

== ENCOUNTER 2018-06-05 13:07 | Emergency (ER) | payer MEDICAID ==
[2018-06-05 13:07] VITALS: BMI 20.7
[2018-06-05 13:19] VITALS: BP 129/78; PULSE 118; TEMP 98.4; O2SAT 96
--- NOTE | 2018-06-05 13:29 | C.PDOC ---
History Of Present Illness 33 year old male presents to the ED for evaluation of anxiety and depression for the last few days. Patient states bereaved stress is related to the recent of a family member. Prior history of [facility] ED visit for similar symptoms. Denies suicide and homicidal ideations, fever, nausea, vomiting, and any other associated symptoms. Time Seen by Provider: 06/05/18 13:17 Chief Complaint (Nursing): Psychiatric Evaluation History Per: Patient History/Exam Limitations: no limitations Onset/Duration Of Symptoms: Days Current Symptoms Are (Timing): Still Present Past Medical History Reviewed: Historical Data, Nursing Documentation, Vital Signs Vital Signs: Last Vital Signs Temp 98.4 F 06/05/18 13:16 Pulse 118 H 06/05/18 13:16 Resp 20 06/05/18 13:16 BP 129/78 06/05/18 13:16 Pulse Ox 96 06/05/18 13:16 - Medical History PMH: Anxiety, Depression Denies: Diabetes, Hepatitis, HIV, HTN, Chronic Kidney Disease, Seizures, Sexually Transmitted Disease - [facility] Procedures GROUP PSYCHOTHERAPY (04/01/18) INDIVIDUAL PSYCHOTHERAPY, COGNITIVE-BEHAVIORAL (04/01/18) INDIVIDUAL PSYCHOTHERAPY, SUPPORTIVE (04/21/18) Family History: States: Unknown Family Hx - Social History Hx Alcohol Use: Yes Hx Substance Use: No - Immunization History Hx Tetanus Toxoid Vaccination: Yes Hx Influenza Vaccination: No Hx Pneumococcal Vaccination: No Review Of Systems Except As Marked, All Systems Reviewed And Found Negative. Constitutional: Negative for: Fever, Chills Gastrointestinal: Negative for: Nausea, Vomiting Psych: Positive for: Anxiety, Depression. Negative for: Suicidal ideation, Other (homicidal ideations) Physical Exam - Physical Exam Appears: Non-toxic, Other (Thin effeminate black male) Skin: Normal Color, Warm, Dry Head: Atraumatic, Normacephalic Eye(s): bilateral: Normal Inspection, PERRL, EOMI Nose: Normal Oral Mucosa: Moist Neck: Normal ROM Chest: Symmetrical, No Deformity Cardiovascular: Rhythm Regular Respiratory: No Accessory Muscle Use, Other (NARD) Extremity: Normal ROM (x4), No Deformity Neurological/Psych: Oriented x3, Normal Speech, Normal Motor, Normal Sensation Gait: Steady ED Course And Treatment O2 Sat by Pulse Oximetry: 96 (RA) Pulse Ox Interpretation: Normal Medical Decision Making Medical Decision Making: ongoing anxiety/depression bereavement d/w Crisis @ bedside pt no SI/HI ok for d/c with [facility] f/u today Disposition Doctor Will See Patient In The: Office Counseled Patient/Family Regarding: Studies Performed, Diagnosis - Disposition Referrals: [facility] [Outside] [facility] [Outside] [facility] [Outside] [facility] [Outside] Disposition: HOME/ ROUTINE Disposition Time: 13:29 Condition: GOOD Additional Instructions: [facility] @ [facility] today as directed by our Crisis Evaluators Instructions: Generalized Anxiety Disorder, Dealing With , Adult Forms: [facility] (Chilean) - Clinical Impression Clinical Impression: Generalized anxiety disorder - Scribe Statement The provider has reviewed the documentation as recorded by the Scribe (Mildred Mckeon) Provider Attestation: All medical record entries made by the Scribe were at my direction and personally dictated by me. I have reviewed the chart and agree that the record accurately reflects my personal performance of the history, physical exam, medical decision making, and the department course for this patient. I have also personally directed, reviewed, and agree with the discharge instructions and disposition.
[2018-06-05 13:52] VITALS: RESP 16
== END 2018-06-05 13:51 | disposition home or self-care (01) ==
LOC: C.ER 13:07
DX: F41.1 Generalized anxiety disorder (principal)

== ENCOUNTER 2018-08-21 07:29 | Inpatient (IN) | payer MEDICAID, OTHER ==
[2018-08-21 07:29] VITALS: BMI 20.7
--- NOTE | 2018-08-21 07:49 | C.PDOC ---
History Of Present Illness 33 y/o male with history of depression and anxietypresents to ED for psych evaluation secondary to suicidal ideation with plan of overdosing on pills. Patient states he became homeless recently and has been feeling depressed for couple of days with increased suicidal thoughts. Patient seen at ED previously with similar complaints. No established psychistric followup, but compliant with medications. No physical complaints. Currently denies Drug/ETOH use, HI, hallucinations, fever, chills, abdominal pain, sob, headache, chest pain or any other physical complaints at this time. Time Seen by Provider: 08/21/18 07:40 Chief Complaint (Nursing): Psychiatric Evaluation History Per: Patient History/Exam Limitations: no limitations Onset/Duration Of Symptoms: Days Current Symptoms Are (Timing): Still Present Suicide/Self Injury Attempted (Context): None Modifying Factor(s): None Associated Symptoms: Depression Past Medical History Reviewed: Historical Data, Nursing Documentation, Vital Signs Vital Signs: Last Vital Signs Temp 98.4 F 08/21/18 07:33 Pulse 99 H 08/21/18 07:33 Resp 18 08/21/18 07:33 BP 124/79 08/21/18 07:33 Pulse Ox 99 08/21/18 07:33 - Medical History PMH: Anxiety, Depression, Seizures Surgical History: No Surg Hx - [facility] Procedures GROUP PSYCHOTHERAPY (06/05/18) INDIVIDUAL PSYCHOTHERAPY, BEHAVIORAL (06/05/18) INDIVIDUAL PSYCHOTHERAPY, COGNITIVE-BEHAVIORAL (04/01/18) INDIVIDUAL PSYCHOTHERAPY, SUPPORTIVE (04/21/18) Family History: States: No Known Family Hx - Social History Hx Alcohol Use: No Hx Substance Use: No - Immunization History Hx Tetanus Toxoid Vaccination: No Hx Influenza Vaccination: Yes Hx Pneumococcal Vaccination: No Review Of Systems Except As Marked, All Systems Reviewed And Found Negative. Constitutional: Negative for: Fever, Chills ENT: Negative for: Throat Swelling Cardiovascular: Negative for: Chest Pain, Palpitations, Light Headedness Respiratory: Negative for: Cough, Shortness of Breath Gastrointestinal: Negative for: Nausea, Vomiting, Abdominal Pain Genitourinary: Negative for: Dysuria, Frequency Musculoskeletal: Negative for: Neck Pain, Hand Pain Skin: Negative for: Rash Neurological: Negative for: Weakness, Numbness, Headache, Dizziness Psych: Positive for: Depression, Suicidal ideation. Negative for: Anxiety, Psychosis, Withdrawal Physical Exam - Physical Exam Appears: Well, Non-toxic, No Acute Distress Skin: Normal Color, Warm, Dry, No Rash Head: Atraumatic, Normacephalic Eye(s): bilateral: Normal Inspection, PERRL, EOMI Nose: Normal Oral Mucosa: Moist Neck: Normal ROM, Supple Cardiovascular: Rhythm Regular Respiratory: Normal Breath Sounds, No Rales, No Rhonchi, No Wheezing Gastrointestinal/Abdominal: Soft, No Tenderness, No Guarding, No Rebound Back: Normal Inspection, No CVA Tenderness, No Muscle Spasm Extremity: Normal ROM, Capillary Refill (<2 seconds) Extremity: Bilateral: Atraumatic, No Pedal Edema, Normal Color And Temperature, Normal ROM Pulses: Left Radial: Normal, Right Radial: Normal, Left Dorsalis Pedis: Normal, Right Dorsalis Pedis: Normal Neurological/Psych: Oriented x3, Normal Speech, Normal Cognition, Normal Motor, Normal Sensation Gait: Steady ED Course And Treatment - Laboratory Results Result Diagrams: 08/21/18 08:29 08/21/18 08:29 Lab Interpretation: Normal ECG: Viewed By Me ECG Rhythm: Sinus Rhythm ECG Interpretation: Normal Interpretation Of ECG: rate 71; NSR; Normal intervals; No STEMI or ST changes Rate From EC O2 Sat by Pulse Oximetry: 99 (RA) Pulse Ox Interpretation: Normal - Radiology CXR: Viewed By Me, Read By Radiologist CXR Interpretation: Yes: No Acute Disease Medical Decision Making Medical Decision Making: Plan: * 1:1 Ordered * Crisis evaluation * CBC, CMP * Acetaminophen, Salicylate, Alcohol * UDS * Valproic acid level 10:50 Patient medically cleared for psychiatric admission. 11:00 Patient evaluated at bedside by JOSE Liao. States patient will be admitted to psychiatric floor under Dr. Pace with diagnosis of Major Depressive Disorder. Patient resting comfortably in stretcher with stable vital signs at this time. A&Ox3, ambulating with steady gait. 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 - Scribe Statement The provider has reviewed the documentation as recorded by the Jessica Ny All medical record entries made by the Scribe were at my direction and personally dictated by me. I have reviewed the chart and agree that the record accurately reflects my personal performance of the history, physical exam, medic al decision making, and the department course for this patient. I have also personally directed, reviewed, and agree with the discharge instructions and disposition. Decision To Admit - Pt Status Changed To: Hospital Disposition Of: Inpatient - Admit Certification Admit to Inpatient:: After my assessment, the patient will require hospitalization for at least two midnights. This is because of the severity of symptoms shown, intensity of services needed, and/or the medical risk in this patient being treated as an outpatient. - InPatient: Physician Admission Certification: I certify that this patient requires 2 or more midnights of care for the following reason:: Psychiatric admission for Major Depressive Disorder secondary to suicidal ideations with a plan - . Bed Request Type: Psychiatry Admitting Physician: Ramiro Pace Patient Diagnosis: Major depressive disorder
[2018-08-21 08:33] LABS: BASO % 0.5 % (0.0-2.0); EOS # 0.1 K/uL (0.0-0.7); EOS % 1.1 % (0.0-4.0); HEMOGLOBIN 16.6 g/dL (12.0-18.0); LYMPH # 1.8 K/uL (1.0-4.3); LYMPH % 25.2 % (20.0-40.0); MEAN CORPUSCULAR HEMOGLOBIN 31.2 pg (27.0-31.0); MEAN CORPUSCULAR HGB CONC 34.7 g/dL (33.0-37.0); MEAN PLATELET VOLUME 8.4 fL (7.2-11.7); MONO # 0.7 K/uL (0.0-0.8); MONO % 9.2 % (0.0-10.0); NEUT # 4.6 K/uL (1.8-7.0); NRBC % 0.1 % (0.0-2.0); RBC 5.32 Mil/uL (4.40-5.90); RED CELL DISTRIBUTION WIDTH 12.7 % (11.5-14.5); WHITE BLOOD COUNT 7.2 K/uL (4.8-10.8)
[2018-08-21 08:45] LABS: ALB/GLOB RATIO 1.2 (1.0-2.1); ALBUMIN 3.9 g/dL (3.5-5.0); ALT/SGPT 27 U/L (21-72); AST/SGOT 22 U/L (17-59); BLOOD UREA NITROGEN 14 mg/dL (9-20); CALCIUM 8.9 mg/dl (8.6-10.4); GFR NON-AFRICAN AMERICAN > 60
[2018-08-21 08:59] LABS: URINE BILIRUBIN NEGATIVE (NEGATIVE); URINE BLOOD NEGATIVE (NEGATIVE); URINE CLARITY Clear (Clear); URINE COLOR Yellow (YELLOW); URINE GLUCOSE (UA) NORMAL (Normal); URINE LEUKOCYTE ESTERASE NEG Leu/uL (Negative); URINE PROTEIN NEGATIVE (NEGATIVE); URINE UROBILINOGEN NORMAL mg/dL (0.2-1.0)
--- NOTE | 2018-08-21 09:09 | RAD ---
Date of service: 08/21/2018 PROCEDURE: CHEST RADIOGRAPH, 1 VIEW HISTORY: Detox/Psy COMPARISON: None available. FINDINGS: LUNGS: No consolidation. Shallow lung volumes-perihilar bronchovascular markings appear crowded as a result. PLEURA: No pneumothorax or pleural fluid seen. CARDIOVASCULAR: There is absence of aortic atherosclerotic calcification on x-ray. Normal heart size given inspiration. No significant appearing pulmonary venous congestion. OSSEOUS STRUCTURES: No significant abnormalities. VISUALIZED UPPER ABDOMEN: Normal. OTHER FINDINGS: None. IMPRESSION: Shallow lung volumes. No acute or active cardiopulmonary pathology appreciated.
[2018-08-21 09:11] LABS: BARBITURATES, UR NEGATIVE (NEGATIVE); BENZODIAZEPINES, UR NEGATIVE (NEGATIVE); OPIATES, UR NEGATIVE (NEGATIVE); PHENCYCLIDINE, UR NEGATIVE (NEGATIVE)
[2018-08-21 09:24] LABS: ACETAMINOPHEN < 10.0 ug/mL (10.0-30.0); SALICYLATE < 1.0 [, mg/dL 1]
[2018-08-21 10:44] LABS: VALPROIC ACID 67.9 ug/mL (50.0-100.0)
--- NOTE | 2018-08-21 11:53 | PCM.BM ---
<Meghna Foster - Last Filed: 08/21/18 11:49> Treatment Plan Problems - Problems identified on initial assessmt Suicidal Ideations Date Initiated: 08/21/18 Time Initiated: 11:20 Assessment reference: NA Status: Active Treatment assets and liabiliti Patient Assests: cooperative, motivated, ADL independent, physically healthy, negotiates basic needs, cognitively intact Patient Liabilities: live alone, financial problems, poor support system, relationship conflicts - Milieu Protocol Maintain good personal hygiene: daily Encourage regular showers, daily Remind patient to perform daily oral care, daily Assist patient to perform ADL's Conduct patient checks and document Observation sheet: Q15 minutes Maintain personal safety: every shift Educate patient to report safety concerns to staff, every shift Monitor environment for contraband/sharps Medication safety: Monitor for expected outcome, potential side effects: every shift, Assess barriers to learning: every shift, Assess readiness for medication education: every shift <Ramiro Pace - Last Filed: 08/22/18 11:24> - Diagnosis (1) Bipolar disorder Status: Acute Interventions: 08/22/18 11:24 * Assess/adjust medications daily and /or as needed * See patient on an individual basis 7x/week to assess level of manic behaviors and stability * Discuss risks, benefits, side effects and alternatives of medications * <Rita Pena - Last Filed: 08/22/18 14:06> Family Contact Family involvement: Famliy/SO not involved - Goals for Treatment Patient goals for treatment: "I want to go back to outpatient at [facility]." Discharge/Continuing Care - Education Needs Education Needs: Patient Medication, Patient Coping Skills, Patient Placement options, Patient Community resources - Discharge Discharge Criteria: Tolerates medication w/o severe side effects, Reduction of target symptoms Discharge to:: [facility] - Treatment Team Participation Discussed with Family/SO: No Was Patient/Family/SO present at Treatment Team Meeting: Yes
--- NOTE | 2018-08-21 12:40 | PCM.PSYCH ---
Initial Psychiatric Evaluation - Initial Psychiatric Evaluation Type of Admission: Voluntary Legal Status: Capacity Chief Complaint (in patient's own words): I was hearing voices telling him to kill myself..' History of Present Illness and Precipitating Events: Patient is a 33 year old single male, who came to the ED with depressed mood suicidal ideation with plan to overdose on pills. As per the ED notes, patient reported "I'm feeling very suicidal, I wrote a note." Patient reported "I recently became homeless." Patient has plan to overdose on pills. Patient stated that he's in a "very bad dark place". Patient has history of few inpatient psychiatric hospitalizations. He was last discharged from [facility] almost 3 months ago. As per the patient his roomate threw him out because his girlfriend was moving in. Patient reports depressed mood, feelings of hopelessness and helplessness, and poor appetite. Patient further stated that he's having bad suicidal thoughts and hears voices telling him to "kill himself". Reports irritability, agitation and paranoia. He denies any drinking denies substance abuse. Past medical history None reported Current Medications: Active Medications Generic Name Dose Route Start Last Admin Trade Name Freq PRN Reason Stop Dose Admin Pneumococcal Polyvalent Vaccine 0.5 ml 08/24/18 09:00 Pneumovax 23 Vaccine IM 08/24/18 09:01 .ONCE ONE Past Psychiatric History - Past Psychiatric History Previous Treatment History: Inpatient Pertinent Medical Hx (Current Medical&Sleep Prob, Allergies): Allergies Allergy/AdvReac Type Severity Reaction Status Date / Time No Known Allergies Allergy Verified 08/21/18 07:37 Divalproex [Depakote] 1,000 mg PO HS 08/21/18 Divalproex [Depakote] 500 mg PO DAILY 08/21/18 Risperidone 4 mg PO BID 08/21/18 Review of Systems - Review of Systems All systems: reviewed and no additional remarkable complaints except - Psychiatric Psychiatric: Anxiety, Auditory Hallucinations, Depression, Irritability, Suicidal Ideation Mental Status Examination - Personal Presentation Personal Presentation: Looks stated age - Affect Affect: Constricted, Depressed - Motor Activity Motor Activity: Calm - Reliability in Providing Information Reliability in Providing Information: Poor, due to alteration in thoughts, Poor, due to altered mood - Speech Speech: Organized - Mood Mood: Depressed, Anxious - Formal Thought Process Formal Thought Process: Hallucinations - Hallucinations/Delusions Hallucinations: Auditory Delusions: Persecution - Obsessions/Compulsions Obsessions: No Compulsions: No - Cognitive Functions Orientation: Person, Place, Situation, Time Sensorium: Alert Attention/Concentration: Attentive Abstract Thinking: [place] Estimate of Intelligence: Below average Judgement: Imparied, as evidence by: Poor judgement, Imparied, as evidence by: Lack of insight into illness - Risk Risk: Suicidal, Diminished functioning - Limitations Limitations: Living alone DSM 5 DX - DSM 5 DSM 5 Diagnosis: Schizophrenia paranoid type continuous Cocaine use disorder moderate - Recommended/Plan of Treatment Treatment Recommendations and Plan of Treatment: Bipolar depressed severe with psychotic features Cocaine use disorder moderate CBT Psychoeducation Supportive therapy, group therapy Depakote 250 mg p.o. twice daily Seroquel 50 mg p.o. nightly Hydroxyzine 25 mg p.o. every 6 hours as needed Trazodone 50 mg p.o. nightly
--- NOTE | 2018-08-22 06:56 | CARD ---
APPROVED REPORT Date of service: 08/21/2018 EKG Measurement Heart [id number] <Conclusion> Normal sinus rhythm Normal ECG
[2018-08-22] MEDS ORDERED: Divalproex 250 mg DR Tab PO SCH (10:45)
--- NOTE | 2018-08-22 22:41 | PCM.PYCHPN ---
Psychiatric Progress Note - Psychiatric Progress Note Patient seen today, length of contact: 16 min Patient Chief Complaint: I am still hearing voices Problems Identified/Issues Discussed: Patient was seen and monitored, chart reviewed and discussed with staff. Patient still reports of hearing voices and he remained isolative and withdrawn. He reports depressed mood and at times feelings of hopelessness and helplessness. He reports poor sleep and poor appetite. He starting medication denies any side effects. Symptoms are improving gradually but he needs to stay longer for the stabilization Supportive therapy was given Medication Change: Yes Medical Record Reviewed: Yes Mental Status Examination - Cognitive Function Orientation: Person, Place, Situation, Time Memory: Intact Attention: WNL Concentration: Poor Association: WNL Fund of Knowledge: Poor - Mood Mood: Depressed, Anxious - Affect Affect: Constricted, Depressed - Speech Speech: Soft - Formal Thought Process Formal Thought Process: Hallucinations - Suicidal Ideation Suicidal Ideation: No - Homicidal Ideation Homicidal Ideation: No Goal/Treatment Plan - Goal/Treatment Plan Need for Continued Stay: Discharge may exacerbated symptoms, Severe functional impairment Progress Toward Problem(s) and Goals/Treatment Plan: Bipolar depressed severe with psychotic features Cocaine use disorder moderate CBT Psychoeducation Supportive therapy, group therapy Depakote 250 mg p.o. twice daily Seroquel 50 mg p.o. nightly Hydroxyzine 25 mg p.o. every 6 hours as needed Trazodone 50 mg p.o. nightly - Smoking Cessation Smoking Cessation Initiated: No
[2018-08-23] MEDS: Divalproex 500 mg DR Tab PO SCH ×2 (09:35→17:24)
[2018-08-24] MEDS ORDERED: Pneumococcal 23-Valent Vaccine IM ONE (09:00)
[2018-08-24] MEDS: Divalproex 500 mg DR Tab PO SCH ×2 (10:03→17:13)
[2018-08-25] MEDS: Divalproex 500 mg DR Tab PO SCH ×2 (09:44→17:26)
[2018-08-26 06:17] VITALS: O2SAT 96
[2018-08-26] MEDS: Divalproex 500 mg DR Tab PO SCH ×2 (10:24→17:25)
[2018-08-27 06:48] VITALS: BP 111/66; PULSE 90; RESP 18; TEMP 97.8
[2018-08-27] MEDS: Divalproex 500 mg DR Tab PO SCH (09:15)
--- NOTE | 2018-08-27 10:07 | PCM.PYCHDC ---
Mental Status Examination - Mental Status Examination Orientation: Person, Place, Situation, Time Memory: Intact Mood: Neutral Affect: Constricted Speech: Soft Attention: WNL Concentration: WNL Association: WNL Fund of Knowledge: WNL Formal Thought Process: No Impairment Description of patient's judgement and insight: good, fair Psychotic Thoughts and Behaviors: denies any AVH Suicidal Ideation: No Current Homicidal Ideation?: No Discharge Summary - Discharge Note Reason for Hospitalization: Patient is a 33 year old single male, who came to the ED with depressed mood suicidal ideation with plan to overdose on pills. As per the ED notes, patient reported "I'm feeling very suicidal, I wrote a note ." Patient reported "I recently became homeless." Patient has plan to overdose on pills. Patient stated that he's in a "very bad dark place". Patient has history of few inpatient psychiatric hospitalizations. He was last discharged from [facility] almost 3 months ago. As per the patient his roommate threw him out because his girlfriend was moving in. Patient reports depressed mood, feelings of hopelessness and helplessness, and poor appetite. Patient further stated that he's having bad suicidal thoughts and hears voices telling him to "kill himself". Reports irritability, agitation and paranoia. He denies any drinking denies substance abuse. Consultations:: List each consultation separately and include: 1. Reason for request. 2. Findings. 3. Follow-up Summary of Hospital Course include:: 1. Description of specific treatment plan utilized for patients during their course of treatmen. 2. Summarize the time- course for resolution of acute symptoms and/or regressed behaviors. 3. Describe issues identified and worked on during hospitalization. 4. Describe medication utilized. 5. Describe medical problems identified and treated. 6. Reassessment of suicide risk Summary of Hospital Course: Patient is a 33 year old single male, who came to the ED with depressed mood suicidal ideation with plan to overdose on pills. As per the ED notes, patient reported "I'm feeling very suicidal, I wrote a note." Patient reported "I recently became homeless." Patient has plan to overd ose on pills. Patient stated that he's in a "very bad dark place". Patient has history of few inpatient psychiatric hospitalizations. He was last discharged from [facility] almost 3 months ago. As per the patient his roomate threw him out because his girlfriend was moving in. Patient reports depressed mood, feelings of hopelessness and helplessness, and poor appetite. Patient further stated that he's having bad suicidal thoughts and hears voices telling him to "kill himself". Reports irritability, agitation and paranoia. He denies any drinking denies substance abuse. Past medical history None reported - Diagnosis (1) Bipolar disorder Current Visit: No Status: Acute - Final Diagnosis (DSM 5) Condition upon Discharge: STABLE Disposition: HOME/ ROUTINE Follow-up Treatment Plan: Bipolar depressed severe with psychotic features Cocaine use disorder moderate CBT Psychoeducation Supportive therapy, group therapy Depakote 250 mg p.o. twice daily Seroquel 50 mg p.o. nightly Hydroxyzine 25 mg p.o. every 6 hours as needed Trazodone 50 mg p.o. nightly Prescriptions/Medication Reconciliation: Divalproex [Depakote DR] 500 mg PO BID #60 tcp QUEtiapine [Seroquel] 100 mg PO HS #30 tab traZODone [Desyrel] 100 mg PO HS #30 tab
== END 2018-08-27 13:07 | disposition home or self-care (01) | DRG 430 ==
LOC: C.ER 07:29 → C.5E 11:00
PROVIDERS: ADMIT Psychiatry & Neurology Psychiatry; ATTEND Psychiatry & Neurology Psychiatry
PROC: GZ56ZZZ Individual Psychotherapy, Supportive (ICD-10-PCS; principal; 2018-08-21)
DX: F31.5 Bipolar disorder, current episode depressed, severe, with psychotic features (principal); F14.10 Cocaine abuse, uncomplicated; R45.851 Suicidal ideations; Z59.0 Homelessness

== ENCOUNTER 2018-10-15 17:35 | Emergency (ER) | payer MEDICAID, OTHER ==
[2018-10-15 17:36] VITALS: BMI 20.7
[2018-10-15] MEDS ORDERED: Sodium Chloride 0.9% 1,000 ML IV ONE (18:05)
[2018-10-15] MEDS ORDERED: Iohexol 240 (50 ml) PO STA (18:05)
[2018-10-15] MEDS ORDERED: Sodium Chloride 0.9% 1,000 ML ONE (18:12)
[2018-10-15] MEDS ORDERED: Iohexol 240 (50 ml) ONE (18:12)
[2018-10-15] MEDS ORDERED: Iohexol 350mg/ml 100 ML ONE (18:26)
--- NOTE | 2018-10-15 18:29 | C.PDOC ---
History Of Present Illness 33 y/o male presents to the ER complaining of nausea, vomiting, and abdominal pain which has been present since last night. Patient states that he was hospitalized for celllulitis of right leg at [facility] few weeks ago. Afterwards, he went to rehab in [place] because he was wheel-chair bound. He had physical therapy for 1 week and he was discharged about 2 weeks ago. He notes that he has been taking the abx for cellulitis. However, he has been having daily diarrhea while taking the medication. Denies having fever and chi lls. Time Seen by Provider: 10/15/18 17:56 Chief Complaint (Nursing): Abdominal Pain History Per: Patient History/Exam Limitations: no limitations Onset/Duration Of Symptoms: Days Current Symptoms Are (Timing): Still Present Severity: Moderate Past Medical History Reviewed: Historical Data, Nursing Documentation, Vital Signs Vital Signs: Last Vital Signs Temp 98.6 F 10/15/18 17:40 Pulse 110 H 10/15/18 17:40 Resp 18 10/15/18 17:40 BP 157/86 H 10/15/18 17:40 Pulse Ox 97 10/15/18 17:40 - Medical History PMH: Anxiety, Depression, Hiatal Hernia, Seizures Denies: Diabetes, Hepatitis, HIV, HTN, Chronic Kidney Disease, Sexually Transmitted Disease Other Surgeries: Hx of surgeries - [facility] Procedures GROUP PSYCHOTHERAPY (06/05/18) INDIVIDUAL PSYCHOTHERAPY, BEHAVIORAL (06/05/18) INDIVIDUAL PSYCHOTHERAPY, COGNITIVE-BEHAVIORAL (04/01/18) INDIVIDUAL PSYCHOTHERAPY, SUPPORTIVE (08/21/18) MEDICATION MANAGEMENT (06/10/18) Family History: States: No Known Family Hx - Social History Hx Alcohol Use: No Hx Substance Use: No - Immunization History Hx Tetanus Toxoid Vaccination: No Hx Influenza Vaccination: Yes Hx Pneumococcal Vaccination: No Review Of Systems Except As Marked, All Systems Reviewed And Found Negative. Constitutional: Negative for: Fever, Chills Gastrointestinal: Positive for: Nausea, Vomiting, Abdominal Pain, Diarrhea Physical Exam - Physical Exam Appears: Non-toxic, No Acute Distress Skin: Normal Color, Warm, Dry Head: Atraumatic, Normacephalic Eye(s): bilateral: Normal Inspection Nose: Normal Oral Mucosa: Moist Neck: Supple Chest: Symmetrical Cardiovascular: Rhythm Regular Respiratory: Normal Breath Sounds, No Rales, No Rhonchi, No Wheezing Gastrointestinal/Abdominal: Bowel Sounds (quiet), Soft, Tenderness (diffuse tenderness), Distention, No Guarding, No Rebound Extremity: Normal ROM, Other (no signs of cellulitis) Neurological/Psych: Oriented x3, Normal Speech ED Course And Treatment - Laboratory Results Result Diagrams: 10/15/18 18:43 10/15/18 18:43 Lab Interpretation: No Acute Changes O2 Sat by Pulse Oximetry: 97 (RA) Pulse Ox Interpretation: Normal - Other Rad CT abd/pel X-Ray: Interpreted by Me, Viewed By Me Interpretation: EXAM: CT Abdomen and Pelvis with IV contrast. CLINICAL HISTORY: Susan umbiical pain. TECHNIQUE: Axial computed tomography images of the abdomen and pelvis with intravenous contrast. CONTRAST: With intravenous contrast. COMPARISON: None provided. FINDINGS: LUNG BASES: The lung bases a ppear clear. No pleural effusions are seen. LIVER: Unremarkable. GALLBLADDER AND BILE DUCTS: The gallbladder appears within normal limits. No radioopaque gallstones are seen. No biliary ductal dilatation is evident. PANCREAS: Unremarkable. SPLEEN: Unremarkable. ADRENAL GLANDS: Unremarkable. KIDNEYS, URETERS, AND BLADDER: The kidneys appear within normal limits. There is no hydronephrosis or hydroureter. No urinary calculi are seen. The urinary bladder is normal in size and configuration. STOMACH AND BOWEL: Unremarkable appearance of the stomach and bowel. No evidence of bowel obstruction. No evidence suggesting enteritis or colitis. The left hemicolon is predominantly decompressed. APPENDIX: No evidence of acute appendicitis on CT examination. PERITONEUM: No free fluid. No free air. A small umbilical hernia is present which contains fat. LYMPH NODES: No lymphadenopathy is evident. REPRODUCTIVE: Unremarkable as visualized. VASCULATURE: No evidence of abdominal aortic aneurysm. BONES: No aggressive appearing osseous lesion. No acute osseous pathology evident. IMPRESSION: 1. No acute intra-abdominal or pelvic abnormality. 2. A small umbilical hernia is identified which contains fat. Reevaluation Time: 21:11 Reassessment Condition: Improved (after IV fluids) Medical Decision Making Medical Decision Making: Plan: --Labs --UA --CT- Abd & Pelv. Disposition Counseled Patient/Family Regarding: Studies Performed, Diagnosis, Need For Followup - Disposition Disposition: HOME/ ROUTINE Disposition Time: 21:11 Condition: IMPROVED Additional Instructions: Encourage fluids and start a probiotic to help with the diarrhea. Instructions: Diarrhea in Adolescents and Adults, Gas and Bloating Forms: [employer] (Lao) - Clinical Impression Clinical Impression: Abdominal bloating, Diarrhea - Scribe Statement The provider has reviewed the documentation as recorded by the Scribe Anna Brown Provider Attestation: All medical record entries made by the Scribe were at my direction and personally dictated by me. I have reviewed the chart and agree that the record accurately reflects my personal performance of the history, physical exam, medical decision making, and the department course for this patient. I have also personally directed, reviewed, and agree with the discharge instructions and disposition.
[2018-10-15 18:48] LABS: BASO % 0.5 % (0.0-2.0); EOS # 0.2 K/uL (0.0-0.7); EOS % 1.9 % (0.0-4.0); HEMOGLOBIN 15.9 g/dL (12.0-18.0); LYMPH # 1.3 K/uL (1.0-4.3); LYMPH % 13.2 % (20.0-40.0); MEAN CELL VOLUME 91.7 fL (80.0-94.0); MEAN CORPUSCULAR HEMOGLOBIN 31.4 pg (27.0-31.0); MEAN CORPUSCULAR HGB CONC 34.2 g/dL (33.0-37.0); MONO # 0.8 K/uL (0.0-0.8); MONO % 7.9 % (0.0-10.0); NEUT # 7.6 K/uL (1.8-7.0); NEUT % 76.5 % (50.0-75.0); RBC 5.08 Mil/uL (4.40-5.90); RED CELL DISTRIBUTION WIDTH 13.8 % (11.5-14.5); WHITE BLOOD COUNT 9.9 K/uL (4.8-10.8)
[2018-10-15 19:13] LABS: ALB/GLOB RATIO 1.5 (1.0-2.1); ALBUMIN 3.8 g/dL (3.5-5.0); ALT/SGPT 36 U/L (21-72); AST/SGOT 104 U/L (17-59); BLOOD UREA NITROGEN 16 mg/dL (9-20); CALCIUM 8.4 mg/dl (8.6-10.4); GFR NON-AFRICAN AMERICAN > 60; LIPASE 36 U/L (23-300)
[2018-10-15 20:01] LABS: URINE BACTERIA RARE (<OCC); URINE BILIRUBIN NEGATIVE (NEGATIVE); URINE BLOOD NEGATIVE (NEGATIVE); URINE CLARITY Clear (Clear); URINE COLOR Yellow (YELLOW); URINE GLUCOSE (UA) NORMAL (Normal); URINE LEUKOCYTE ESTERASE NEG Leu/uL (Negative); URINE PROTEIN 1+ mg/dL (NEGATIVE)
[2018-10-15 21:33] VITALS: BP 132/84; PULSE 99; RESP 20; TEMP 98.9; O2SAT 99
--- NOTE | 2018-10-16 08:50 | CT ---
CT abdomen and pelvis HISTORY: Abdominal pain. COMPARISON: None available. TECHNIQUE: Multiple contiguous axial images were performed through the abdomen and pelvis with the use of intravenous contrast. Subsequently, sagittal and coronal reformatted images were obtained. This CT exam was performed using one or more of the following dose reduction techniques: Automated exposure control, adjustment of the mA and/or kV according to patient size, and/or use of iterative reconstruction technique. Findings: Lung bases are clear. No pleural or pericardial effusion. Mild fatty infiltration of the liver. Small 7 millimeter hypodensity in the periphery of the right hepatic lobe, too small to adequately characterize. Gallbladder appears preserved. Spleen appears preserved. Adrenal glands appear preserved. Pancreas appears preserved. Upper abdominal bowel appears preserved. Right kidney: No calculi or hydronephrosis. Left: No calculi or hydronephrosis. Urinary bladder is preserved. Few scattered colonic diverticuli. Fecal retention in the colon. Underdistention of the descending colon. Appendix within normal limits. Few shotty para-aortic and inguinal lymph nodes. Few shotty mesenteric lymph nodes. Earl sacralization of the left aspect of the L5 vertebral body. Small fat containing umbilical hernia. Impression: Negative acute. Additional findings as above. A preliminary report was generated at 9:06 p.m. on 10/15/[address] Chris Arriaga from [employer].
== END 2018-10-15 21:35 | disposition home or self-care (01) ==
LOC: C.ER 17:35
DX: R14.0 Abdominal distension (gaseous) (principal); R19.7 Diarrhea, unspecified; F32.9 Major depressive disorder, single episode, unspecified
CPT/HCPCS: 74177; 80053; 81001; 83690; 85025; 87230; 96360; 99285; J7030; Q9966; Q9967

== ENCOUNTER 2018-11-16 05:34 | Inpatient (IN) | payer MEDICAID, OTHER ==
[2018-11-16 05:35] VITALS: BMI 22.5
[2018-11-16 05:42] VITALS: O2SAT 100
--- NOTE | 2018-11-16 05:53 | C.PDOC ---
History Of Present Illness 33 year old male is a transfer for admission. Patient was seen and medically cleared at [facility]. Patient was accepted for admission by Dr. Tracey. Patient denies any medical complaints at this time. Time Seen by Provider: 11/16/18 05:50 Chief Complaint (Nursing): Psychiatric Evaluation History Per: Patient History/Exam Limitations: no limitations Onset/Duration Of Symptoms: Days Current Symptoms Are (Timing): Still Present Associated Symptoms: Depression. denies: Suicidal Thoughts, Suicidal Plan Recent travel outside of the [place]: No Additional History Per: Patient Past Medical History Reviewed: Historical Data, Nursing Documentation, Vital Signs Vital Signs: Last Vital Signs Temp 99.2 F 11/16/18 05:41 Pulse 92 H 11/16/18 05:41 Resp 20 11/16/18 05:41 BP 130/78 11/16/18 05:41 Pulse Ox 100 11/16/18 05:41 - Medical History PMH: Anxiety, Bipolar Disorder, Depression, Hiatal Hernia, Seizures Denies: Diabetes, Hepatitis, HIV, HTN, Chronic Kidney Disease, Sexually Transmitted Disease Surgical History: No Surg Hx - [facility] Procedures GROUP PSYCHOTHERAPY (06/05/18) INDIVIDUAL PSYCHOTHERAPY, BEHAVIORAL (06/05/18) INDIVIDUAL PSYCHOTHERAPY, COGNITIVE-BEHAVIORAL (04/01/18) INDIVIDUAL PSYCHOTHERAPY, SUPPORTIVE (08/21/18) MEDICATION MANAGEMENT (06/10/18) Family History: States: No Known Family Hx - Social History Hx Alcohol Use: No Hx Substance Use: No - Immunization History Hx Tetanus Toxoid Vaccination: No Hx Influenza Vaccination: Yes Hx Pneumococcal Vaccination: No Review Of Systems Constitutional: Negative for: Fever, Chills Cardiovascular: Negative for: Chest Pain Respiratory: Negative for: Shortness of Breath Gastrointestinal: Negative for: Nausea, Abdominal Pain Skin: Negative for: Rash Psych: Positive for: Depression. Negative for: Suicidal ideation Physical Exam - Physical Exam Appears: Non-toxic, No Acute Distress Skin: Warm, Dry Head: Normacephalic Eye(s): bilateral: Normal Inspection Neck: Supple Chest: Symmetrical Cardiovascular: Rhythm Regular Respiratory: No Rales, No Rhonchi, No Wheezing Extremity: Bilateral: Atraumatic, Normal Color And Temperature, Normal ROM Neurological/Psych: Oriented x3, Normal Speech, Normal Cognition Gait: Steady ED Course And Treatment O2 Sat by Pulse Oximetry: 100 (ON RA) Pulse Ox Interpretation: Normal Disposition Discussed With .: Darius Tracey Comment: accepted the pt on his service and took over the care at 5:54 AM Doctor Will See Patient In The: Hospital Counseled Patient/Family Regarding: Studies Performed, Diagnosis - Disposition Disposition: HOSPITALIZED Disposition Time: 05:54 Condition: FAIR Forms: [facility] (Haitian) - POA Present On Arrival: None - Clinical Impression Clinical Impression: Depression - Scribe Statement The provider has reviewed the documentation as recorded by the Scribe Julio Hayes All medical record entries made by the Scribe were at my direction and personally dictated by me. I have reviewed the chart and agree that the record accurately reflects my personal performance of the history, physical exam, medical decision making, and the department course for this patient. I have also personally directed, reviewed, and agree with the discharge instructions and disposition. Decision To Admit - Pt Status Changed To: Hospital Disposition Of: Inpatient - Admit Certification Admit to Inpatient:: After my assessment, the patient will require hospitalization for at least two midnights. This is because of the severity of symptoms shown, intensity of services needed, and/or the medical risk in this patient being treated as an outpatient. - InPatient: Physician Admission Certification: I certify that this patient requires 2 or more midnights of care for the following reason:: After my assessment, the patient will require hospitalization for at least two midnights. This is because of the severity of symptoms shown, intensity of services needed, and/or the medical risk in this patient being treated as an outpatient. - . Bed Request Type: Psychiatry Admitting Physician: Darius Tracey Patient Diagnosis: Depression
--- NOTE | 2018-11-16 07:43 | PCM.BM ---
<Meghna Foster - Last Filed: 11/16/18 07:41> Treatment Plan Problems - Problems identified on initial assessmt Feelings of Worthlessness Date Initiated: 11/16/18 Time Initiated: 07:42 Assessment reference: NA Status: Active Hopelessness Date Initiated: 11/16/18 Time Initiated: 07:42 Assessment reference: NA Status: Active Treatment assets and liabiliti Patient Assests: good support system, negotiates basic needs, cognitively intact, good interpersonal skills, cooperative, educated, motivated, self- reliant, ADL independent, physically healthy Patient Liabilities: live alone, financial problems, poor support system, relationship conflicts, substance abuse - Milieu Protocol Maintain good personal hygiene: daily Encourage regular showers, daily Remind patient to perform daily oral care, daily Assist patient to perform ADL's Conduct patient checks and document Observation sheet: Q15 minutes Maintain personal safety: every shift Educate patient to report safety concerns to staff, every shift Monitor environment for contraband/sharps Medication safety: Monitor for expected outcome, potential side effects: every shift, Assess barriers to learning: every shift, Assess readiness for medication education: every shift <Ramiro Pace - Last Filed: 11/17/18 11:23> - Diagnosis (1) Bipolar disorder Status: Acute Interventions: 11/17/18 11:24 * Assess/adjust medications daily and /or as needed * See patient on an individual basis 7x/week to assess level of manic behaviors and stability * Discuss risks, benefits, side effects and alternatives of medications * <Deena Hernández - Last Filed: 11/17/18 12:15> Family Contact Family involvement: Patient does not wish Family/SO involvement Family contact: Patient declines to allow family contact at present - Goals for Treatment Patient goals for treatment: "I want to go to an outpatient program." Discharge/Continuing Care - Education Needs Education Needs: Patient Medication, Patient Diagnosis/Disease Process, Patient Coping Skills, Patient Placement options, Patient Community resources - Discharge Discharge Criteria: Free of Suicidal thoughts, Free of agitation, Normal sleep pattern, Ability to care for self, No longer exhibiting s/s of withdrawal, Reduction of target symptoms Discharge to:: Residential - Treatment Team Participation Discussed with Family/SO: No Was Patient/Family/SO present at Treatment Team Meeting: Yes
[2018-11-16] MEDS: Divalproex 500 mg DR Tab PO SCH ×3 (10:07→18:04)
--- NOTE | 2018-11-16 10:56 | PCM.PSYCH ---
Initial Psychiatric Evaluation - Initial Psychiatric Evaluation Type of Admission: Voluntary Legal Status: Capacity Chief Complaint (in patient's own words): "I am manic" History of Present Illness and Precipitating Events: The pt is seen, chart reviewed, case discussed He is known from previous psych admissions here, where he was mostly med-seeking (ie Concerta), demanding and verbally abusive. He contracts to obey unit rules and be respectful now. He is transferred from [facility] bc of no beds there. He is a 33 y/o AAM, single, no child, unemployed and homeless. He claims he was sent to a rehab in [facility] after an admission to [facility] and b/c of that he lost his job and apartment. He was compliant with depakote but it was "not enough" and he couldn't take 160 mg of Geodon b/c of sedation. He denies alcohol and drug use now but he had had alcoholism in the past. He admits to being manic; not sleeping in "5 days" talking too much, high energy and he says he "had sex with 10 people on one day, men and women." (?) He had suicidal and homicidal ideation on admission but feels better now. He doesn't have any outpt dr at this point Past psych hx: Numerous admissions with mojgan or depression. He claims to have ADHD and hx of trauma Medical hx: He wants to be checked for STD Family psych hx: Bipolar d/o Current Medications: Active Medications Generic Name Dose Route Start Last Admin Trade Name Freq PRN Reason Stop Dose Admin Influenza Virus Vaccine 60 mcg 11/20/18 10:00 Flucelvax Quad 0120-2921 Syr IM 11/20/18 10:01 .ONCE ONE Pneumococcal Polyvalent Vaccine 0.5 ml 11/20/18 10:00 Pneumovax 23 Vaccine IM 11/20/18 10:01 .ONCE ONE Past Psychiatric History - Past Psychiatric History Previous Treatment History: Inpatient Pertinent Medical Hx (Current Medical&Sleep Prob, Allergies): Allergies Allergy/AdvReac Type Severity Reaction Status Date / Time No Known Allergies Allergy Verified 10/29/18 17:17 Methylphenidate HCl [Concerta] 54 mg PO DAILY 10/15/18 Divalproex [Depakote DR] 500 mg PO Q8 10/29/18 Ziprasidone HCl [Geodon] 80 mg PO BID 10/29/18 Review of Systems - Psychiatric Psychiatric: Abnormal Sleep Pattern, Anxiety, Behavioral Changes, Change in Appetite, Depression (mild), Difficulty Concentrating, Irritability, Mood Swings, Paranoia. absent: Homicidal Ideation, Suicidal Ideation Mental Status Examination - Personal Presentation Personal Presentation: Looks older than stated age - Affect Affect: Other (intense) - Motor Activity Motor Activity: Psychomotor Agitation (mild) - Reliability in Providing Information Reliability in Providing Information: Fair - Speech Speech: Disorganized (mild) - Mood Mood: Anxious, Other (irate, elated at times) - Formal Thought Process Formal Thought Process: Paranoia, Loosening of associations - Cognitive Functions Orientation: Person, Place, Situation, Time Sensorium: Alert Attention/Concentration: Easily distracted Abstract Thinking: Drummond Estimate of Intelligence: Below average Judgement: Imparied, as evidence by: Poor judgement Memory: Recent intact, as evidence by: Ability to recall events of the day, Remote intact, as evidenced by: Ability to recall historical events - Risk Risk: Diminished functioning - Strength & Assets Inventory Strength & Assets Inventory: Cooperative - Limitations Limitations: Living alone, Other DSM 5 DX - DSM 5 DSM 5 Diagnosis: Bipolar 1 disorder manic, severe ADHD Alcohol use disorder severe Personality disorder - unspecified - Recommended/Plan of Treatment Treatment Recommendations and Plan of Treatment: Resume Depakote 2000 mg/d - level in AM DC al (not working, not using properly) - start Abilify and go up to 30 mg As need medications All risks, benefits and alternatives of the meds discussed, and the pt agreed and understood. Attend groups and activities Individual therapy daily Psychoeducation and support daily Encourage compliance with meds and after care Refer to outpatient program or rehab Teach healthy lifestyle methods, i.e. diet, exercise, meditation Smoking cessation and patch if needed NM for alcohol sobriety 32 min Projected ELOS: 5 days Prognosis: good w proper follow up - Smoking Cessation Smoking Cessation Initiated: Yes
[2018-11-17] MEDS: Divalproex 500 mg DR Tab PO SCH ×2 (09:38→17:29)
--- NOTE | 2018-11-17 11:23 | PCM.PYCHPN ---
Psychiatric Progress Note - Psychiatric Progress Note Patient seen today, length of contact: 15 min Medication Change: Yes Medical Record Reviewed: Yes Mental Status Examination - Cognitive Function Orientation: Person, Place, Situation, Time Memory: Intact Attention: WNL Concentration: Poor Association: WNL Fund of Knowledge: Poor - Mood Mood: Anxious, Other (irate, elated at times) - Affect Affect: Constricted, Other (intense) - Speech Speech: Soft - Formal Thought Process Formal Thought Process: Paranoia, Loosening of associations - Suicidal Ideation Suicidal Ideation: No - Homicidal Ideation Homicidal Ideation: No Goal/Treatment Plan - Goal/Treatment Plan Need for Continued Stay: Remain at risks for inpatient hospitalization Progress Toward Problem(s) and Goals/Treatment Plan: Bipolar 1 disorder manic, severe ADHD Alcohol use disorder severe Personality disorder - unspecified Resume Depakote 2000 mg/d - level in AM DC al (not working, not using properly) - start Abilify and go up to 30 mg As need medications All risks, benefits and alternatives of the meds discussed, and the pt agreed and understood. Attend groups and activities Individual therapy daily Psychoeducation and support daily Encourage compliance with meds and after care Refer to outpatient program or rehab Teach healthy lifestyle methods, i.e. diet, exercise, meditation Smoking cessation and patch if needed PA for alcohol sobriety - Smoking Cessation Smoking Cessation Initiated: No
[2018-11-18] MEDS: Divalproex 500 mg DR Tab PO SCH ×2 (10:31→17:26)
[2018-11-19] MEDS: Divalproex 500 mg DR Tab PO SCH ×2 (10:44→17:04)
[2018-11-20 06:46] VITALS: BP 116/71; PULSE 76; RESP 16; TEMP 98
[2018-11-20] MEDS: Divalproex 500 mg DR Tab PO SCH (09:31)
--- NOTE | 2018-11-20 09:44 | PCM.PYCHDC ---
Mental Status Examination - Mental Status Examination Orientation: Person, Place, Situation, Time Memory: Intact Mood: Neutral Affect: Constricted Speech: Soft Attention: WNL Concentration: WNL Association: WNL Fund of Knowledge: WNL Formal Thought Process: No Impairment Description of patient's judgement and insight: good, fair Psychotic Thoughts and Behaviors: denies any AVH Suicidal Ideation: No Current Homicidal Ideation?: No Discharge Summary - Discharge Note Consultations:: List each consultation separately and include: 1. Reason for request. 2. Findings. 3. Follow-up Summary of Hospital Course include:: 1. Description of specific treatment plan utilized for patients during their course of treatmen. 2. Summarize the time- course for resolution of acute symptoms and/or regressed behaviors. 3. Describe issues identified and worked on during hospitalization. 4. Describe medication utilized. 5. Describe medical problems identified and treated. 6. Reassessment of suicide risk - Diagnosis (1) Bipolar disorder Current Visit: No Status: Acute - Final Diagnosis (DSM 5) Condition upon Discharge: FAIR Disposition: HOME/ ROUTINE Follow-up Treatment Plan: Bipolar 1 disorder manic, severe ADHD Alcohol use disorder severe Personality disorder - unspecified Resume Depakote 2000 mg/d - level in AM DC geodon (not working, not using properly) - start Abilify and go up to 30 mg As need medications All risks, benefits and alternatives of the meds discussed, and the pt agreed and understood. Attend groups and activities Individual therapy daily Psychoeducation and support daily Encourage compliance with meds and after care Refer to outpatient program or rehab Teach healthy lifestyle methods, i.e. diet, exercise, meditation Smoking cessation and patch if needed [place] for alcohol sobriety Prescriptions/Medication Reconciliation: ARIPiprazole [Abilify] 10 mg PO QPM #30 tab Divalproex [Depakote DR] 500 mg PO BID #120 tcp traZODone [Desyrel] 100 mg PO HS PRN #30 tab PRN Reason: Insomnia
--- NOTE | 2018-11-20 09:45 | PCM.PYCHPN ---
Psychiatric Progress Note - Psychiatric Progress Note Patient seen today, length of contact: 15 min Medication Change: Yes Medical Record Reviewed: Yes Mental Status Examination - Cognitive Function Orientation: Person, Place, Situation, Time Memory: Intact Attention: WNL Concentration: WNL Association: WNL Fund of Knowledge: WNL Decription of patient's judgement and insights: good, fair - Mood Mood: Neutral - Affect Affect: Constricted - Speech Speech: Soft - Formal Thought Process Formal Thought Process: No Impairment Psychotic Thoughts and Behaviors: denies any AVH - Suicidal Ideation Suicidal Ideation: No - Homicidal Ideation Homicidal Ideation: No Goal/Treatment Plan - Goal/Treatment Plan Need for Continued Stay: Remain at risks for inpatient hospitalization Progress Toward Problem(s) and Goals/Treatment Plan: Bipolar 1 disorder manic, severe ADHD Alcohol use disorder severe Personality disorder - unspecified Resume Depakote 2000 mg/d - level in AM RAMONITA melendez (not working, not using properly) - start Abilify and go up to 30 mg As need medications All risks, benefits and alternatives of the meds discussed, and the pt agreed and understood. Attend groups and activities Individual therapy daily Psychoeducation and support daily Encourage compliance with meds and after care Refer to outpatient program or rehab Teach healthy lifestyle methods, i.e. diet, exercise, meditation Smoking cessation and patch if needed [place] for alcohol sobriety
[2018-11-20] MEDS ORDERED: Influenza Vaccine 60 mcg/0.5 mL SYR (4YR UP) IM ONE (10:00)
[2018-11-20] MEDS ORDERED: Pneumococcal 23-Valent Vaccine IM ONE (10:00)
== END 2018-11-20 10:52 | disposition home or self-care (01) | DRG 430 ==
LOC: C.ER 05:34 → C.5E 05:53
PROVIDERS: ADMIT Psychiatry & Neurology Psychiatry; ATTEND Psychiatry & Neurology Psychiatry
DX: F31.13 Bipolar disorder, current episode manic without psychotic features, severe (principal); F60.9 Personality disorder, unspecified; F90.9 Attention-deficit hyperactivity disorder, unspecified type; F10.10 Alcohol abuse, uncomplicated; R45.850 Homicidal ideations; R45.851 Suicidal ideations